=== PATIENT | male | born 1955 | race Caucasian/White ===

== ENCOUNTER 2017-02-12 23:03 | Emergency (ER) | payer OTHER ==
[2017-02-12 23:29] VITALS: BP 135/84; PULSE 90; RESP 16; TEMP 97.3; O2SAT 98
[2017-02-12 23:40] VITALS: BMI 50.8
[2017-02-12] MEDS ORDERED: (Novolog) Insulin Aspart, Recombinant 100 u/ml 10 ml vial SC STA (23:40)
--- NOTE | 2017-02-12 23:44 | C.PDOC ---
History Of Present Illness 61 yo morbidly obese M, reports sugar usually 180 today up to 550. He took 60 u novalog over several hours with decrease to ~450 the checked his insulin and it was outdated by 6 mths Now very anxious about the insulin. Denies CP, SOB, Fever, Vomiting, or non compliance Time Seen by Provider: 02/12/17 23:29 History Per: Patient History/Exam Limitations: no limitations Current Symptoms Are (Timing): Still Present Past Medical History Vital Signs: Last Vital Signs Temp 97.3 F L 02/12/17 23:28 Pulse 90 02/12/17 23:28 Resp 16 02/12/17 23:28 BP 135/84 02/12/17 23:28 Pulse Ox 98 02/12/17 23:46 - Medical History PMH: Arthritis, CAD, CHF, HTN, Hypercholesterolemia Surgical History: Coronary Stent - [facility] Procedures ASSISTANCE WITH RESPIRATORY VENTILATION, <24 HRS, CPAP (07/07/15) FLUOROSCOPY OF LEFT HEART USING LOW OSMOLAR CONTRAST (09/20/16) FLUOROSCOPY OF MULT COR ART USING L OSM CONTRAST (09/20/16) MEASURE OF CARDIAC SAMPL & PRESSURE, L HEART, PERC APPROACH (09/20/16) Family History: States: Unknown Family Hx - Social History Hx Tobacco Use: No Hx Alcohol Use: No Hx Substance Use: No Review Of Systems Except As Marked, All Systems Reviewed And Found Negative. Physical Exam - Physical Exam Appears: Well, No Acute Distress Skin: Normal Color, Warm Cardiovascular: Rhythm Regular Respiratory: No Rales, No Rhonchi Gastrointestinal/Abdominal: No Tenderness Neurological/Psych: Oriented x3, Normal Speech, Normal Cognition ED Course And Treatment O2 Sat by Pulse Oximetry: 98 Progress Note: accucheck 450 Medical Decision Making Medical Decision Making: Pt does not want blood work or furhter evaluation Requests insulin (novolog 25) and Rx for new bottle of novolog He understands the risk of no work up Plan sq insulin Rx for home Disposition Counseled Patient/Family Regarding: Diagnosis, Need For Followup - Disposition Disposition: HOME/ ROUTINE Disposition Time: 00:10 Condition: GOOD Prescriptions: Insulin Glulisine [Apidra] 16 unit SQ TID #1 ml Instructions: Diabetic Hyperglycemia (ED) - Clinical Impression Clinical Impression: Uncontrolled diabetes mellitus
[2017-02-12] MEDS ORDERED: (Novolog) Insulin Aspart, Recombinant 100 u/ml 10 ml vial ONE (23:48)
== END 2017-02-13 00:15 | disposition home or self-care (01) ==
LOC: C.ER 23:03
DX: E11.65 Type 2 diabetes mellitus with hyperglycemia (principal); Z79.4 Long term (current) use of insulin

== ENCOUNTER 2018-07-17 22:41 | Inpatient (IN) | payer OTHER ==
[2018-07-17 22:41] VITALS: BMI 50.8
[2018-07-18] MEDS ORDERED: Aspirin 325 mg EC Tablets PO STA (00:03)
[2018-07-18 00:50] LABS: BASO # 0.1 K/uL (0.0-0.2); EOS # 0.1 K/uL (0.0-0.7); EOS % 0.7 % (0.0-4.0); HEMOGLOBIN 13.3 g/dL (12.0-18.0); LYMPH # 2.3 K/uL (1.0-4.3); LYMPH % 15.1 % (20.0-40.0); MEAN CELL VOLUME 80.7 fL (80.0-94.0); MEAN CORPUSCULAR HEMOGLOBIN 26.4 pg (27.0-31.0); MEAN CORPUSCULAR HGB CONC 32.8 g/dL (33.0-37.0); MEAN PLATELET VOLUME 10.1 fL (7.2-11.7); MONO # 1.3 K/uL (0.0-0.8); MONO % 8.5 % (0.0-10.0); NEUT # 11.2 K/uL (1.8-7.0); NEUT % 74.7 % (50.0-75.0); NRBC % 0.1 % (0.0-2.0); RBC 5.02 Mil/uL (4.40-5.90); RED CELL DISTRIBUTION WIDTH 17.9 % (11.5-14.5); WHITE BLOOD COUNT 14.9 K/uL (4.8-10.8)
[2018-07-18] MEDS ORDERED: Aspirin 325 mg EC Tablets PO ONE (00:53)
--- NOTE | 2018-07-18 01:08 | C.PDOC ---
History Of Present Illness 63 year old male presents to the ED for evaluation of vague chest discomfort. Patient recently underwent admission on 05/18 for the same complaint and had a normal workup. Patient was evaluated by Dr. Mckeon (paper deliverer) and under went cardiac echo which was significant for LVH and diastolic dysfunction. Patient claims good medicine compliance. He denies fever, chills, shortness of breath, nausea, vomiting, extremity numbness/weakness. Time Seen by Provider: 07/17/18 23:56 Chief Complaint (Nursing): Chest Pain History Per: Patient History/Exam Limitations: no limitations Onset/Duration Of Symptoms: Days Current Symptoms Are (Timing): Still Present Additional History Per: Patient Past Medical History Reviewed: Historical Data, Nursing Documentation, Vital Signs Vital Signs: Last Vital Signs Temp 97.7 F 07/17/18 22:56 Pulse 86 07/17/18 22:56 Resp 22 07/17/18 22:56 BP 101/55 L 07/17/18 22:56 Pulse Ox - Medical History PMH: Arthritis, CAD, CHF, COPD, HTN, Hypercholesterolemia Denies: Asthma, Atrial Fibrillation, Cardia Arrhythmia, Mitral Valve Prolapse, Peripheral Edema, Chronic Kidney Disease Surgical History: Coronary Stent Denies: Pacemaker - [facility] Procedures ASSISTANCE WITH RESPIRATORY VENTILATION, <24 HRS, CPAP (07/07/15) FLUOROSCOPY OF LEFT HEART USING LOW OSMOLAR CONTRAST (09/20/16) FLUOROSCOPY OF MULT COR ART USING L OSM CONTRAST (09/20/16) MEASURE OF CARDIAC SAMPL & PRESSURE, L HEART, PERC APPROACH (09/20/16) Family History: States: Unknown Family Hx - Social History Hx Tobacco Use: No Hx Alcohol Use: No Hx Substance Use: No - Immunization History Hx Tetanus Toxoid Vaccination: No Hx Influenza Vaccination: No Hx Pneumococcal Vaccination: No Review Of Systems Constitutional: Negative for: Fever, Chills Cardiovascular: Positive for: Other (chest discomfort ) Gastrointestinal: Negative for: Nausea, Vomiting Neurological: Negative for: Weakness, Numbness Physical Exam - Physical Exam Appears: Non-toxic, No Acute Distress Skin: Normal Color, Warm, Dry Head: Atraumatic, Normacephalic, Other (plethoric face) Eye(s): bilateral: Normal Inspection Oral Mucosa: Moist Neck: Supple, Other (supraclavicular fat pads ) Chest: Symmetrical, No Deformity, No Tenderness Cardiovascular: Rhythm Regular, No Murmur Respiratory: Normal Breath Sounds, No Rales, No Rhonchi, No Wheezing Gastrointestinal/Abdominal: Soft, No Tenderness, No Guarding, No Rebound, Other (central obesity ) Back: Other (buffalo hump ) Extremity: Normal ROM, Capillary Refill (less than 2 seconds ), Other (thin extremities, no edema ) Neurological/Psych: Oriented x3, Normal Speech, Normal Cognition ED Course And Treatment - Laboratory Results Result Diagrams: 07/18/18 00:46 07/18/18 00:46 ECG: Interpreted By Me ECG Rhythm: Sinus Rhythm ECG Interpretation: Normal, No Acute Changes, No Changes From Prior Rate From EC O2 Sat by Pulse Oximetry: 95 (on RA) Pulse Ox Interpretation: Normal - Radiology CXR: Interpreted by Me CXR Interpretation: Yes: No Acute Disease, Other (unchanged from prior, same widened mediastinum which was imaged 05/18 w CTA, no thoracic aortic aneurysm.) Progress Note: Bloodwork, urinalysis, CXR, EKG ordered and reviewed. Aspirin PO and Lovenox SC administered. Reevaluation Time: 02:00 Reassessment Condition: Improved (remains asymptomatic now.) - Physician Consult Information Outcome Of Conversation: 0000, 0200: d/w Dr. Lange, ok to Tele Adm. Consult for Dr. Mckeon entered. 0300: d/w Dr. Sarmiento @ pt's request, who defers adm to Dr. Lange Medical Decision Making Medical Decision Making: CP/NSTEMI trop 1.21 CP free with normal EKG in ED high risk considering DM, morbid obesity lovenox SQ Consult Dr. Mckeon, has consulted on this pt prior Was pending opt stress test, unclear if this was performed chronic leukocytosis, not L-shifted, prob related to chronic steroids for COPD Central obesity/plethoric consider Bernadette Syndrome due to exogenous steroid use Consider ACTH/24 urine cortisol Disposition Doctor Will See Patient In The: Office Counseled Patient/Family Regarding: Studies Performed, Diagnosis - Disposition Disposition: HOSPITALIZED Disposition Time: 01:07 Condition: GOOD - Clinical Impression Clinical Impression: Chest pain, NSTEMI (non-ST elevated myocardial infarction) - Scribe Statement The provider has reviewed the documentation as recorded by the Scribe (Peyton Walter) Provider Attestation: All medical record entries made by the Scribe were at my direction and personall y dictated by me. I have reviewed the chart and agree that the record accurately reflects my personal performance of the history, physical exam, medical decision making, and the department course for this patient. I have also personally directed, reviewed, and agree with the discharge instructions and disposition.
[2018-07-18 01:20] LABS: ALB/GLOB RATIO 1.2 (1.0-2.1); ALBUMIN 3.7 g/dL (3.5-5.0); ALT/SGPT 59 U/L (21-72); AST/SGOT 64 U/L (17-59); BLOOD UREA NITROGEN 32 mg/dL (9-20); CALCIUM 8.9 mg/dl (8.6-10.4); GFR NON-AFRICAN AMERICAN > 60
[2018-07-18 01:54] LABS: B-TYPE NATRIURETIC PEPTIDE 169 pg/mL (0-900)
[2018-07-18] MEDS ORDERED: Enoxaparin 40 mg Syringe SC STA (01:57)
[2018-07-18] MEDS ORDERED: Enoxaparin 40 mg Syringe ONE (02:15)
[2018-07-18] MEDS ORDERED: Enoxaparin 60 mg Syringe ONE (02:16)
[2018-07-18] MEDS ORDERED: Morphine 4 MG/ML VIAL IV PRN (04:21)
--- NOTE | 2018-07-18 07:44 | RAD ---
Chest x-ray single frontal view HISTORY: Shortness of breath. COMPARISON: 05/12/2018 FINDINGS: Widened and prominent mediastinum. Clinical correlation. Enlarged ectatic aorta. Cardiomegaly. Mild venous congestion. Patchy increased markings at the left lung base. Degenerative changes in the spine and shoulders. Impression: Widened and prominent mediastinum. Clinical correlation. Enlarged ectatic aorta. Cardiomegaly. Mild venous congestion. Patchy increased markings at the left lung base.
--- NOTE | 2018-07-18 09:17 | CP.PCM.PN ---
Subjective - Date & Time of Evaluation Date of Evaluation: 07/18/18 Time of Evaluation: 09:14 - Subjective Subjective: House doctor responding to page Patient is having an NSTEMI as per EMR Came to see patient: sitting up in bed, combatitive with staff, refusing treatment believes that his white blood cell is elevated from infection, and it was explai cassie that the WBC elevation can be in response to the NSTEMI he is having; patient continued to become agitated patient states he had one stent prior offered 2mg IV morphine for pain control; patient refused EKG from 8:17AM shows NSR with no ST elevations, or T wave inversions/peaks Vitals: HR 75, BP 113/70, O2 98% on RA, RR 22 General: patient is agitated; morbidly obese Head: NCAT Chest: no sternotomy scar, Lungs: CTA b/lo heart: RRR no murmurs rubs or gallops abdomen: obese, soft non tender extrem: 1+ pitting edema lower extremities +2 pulses Ordered stat EKG Morphine 2mg; patient refused patient is anticoagulated with therapeutic lovenox and was loaded with plavix will repeat EKG; ICU doctor called Dwight Fuentes PGy3 Objective - Vital Signs/Intake and Output Vital Signs (last 24 hours): Temp Pulse Resp BP Pulse Ox 98 F 67 20 138/84 97 07/18/18 07:00 07/18/18 07:00 07/18/18 07:00 07/18/18 07:00 07/18/18 07:00 Intake and Output: 07/18/18 07/18/18 06:59 18:59 Intake Total 120 Balance 120 - Medications Medications: Current Medications Clopidogrel Bisulfate (Plavix) 75 mg PO DAILY [facility] Enoxaparin Sodium (Lovenox) 120 mg SC Q12 [facility] Influenza Virus Vaccine (Fluzone Quad [id number]) 60 mcg IM .ONCE ONE Stop: 07/20/18 10:01 Morphine Sulfate (Morphine) 2 mg IVP STAT STA Stop: 07/18/18 09:07 Ondansetron HCl (Zofran Inj) 4 mg IVP ONCE ONE Stop: 07/18/18 09:10 Ondansetron HCl (Zofran Odt) 4 mg PO Q6 PRN PRN Reason: Nausea/Vomiting Tramadol HCl (Ultram) 50 mg PO TID PRN PRN Reason: Pain, moderate (4-7) Last Admin: 07/18/18 04:51 Dose: 50 mg - Labs Labs: 07/18/18 00:46 07/18/18 00:46
[2018-07-18 10:13] LABS: CK-MB 8.14 ng/mL (0.0-3.38); TROPONIN I 1.48 ng/mL (0.00-0.120)
[2018-07-18] MEDS: Enoxaparin 120 mg Syringe SC SCH ×2 (10:21→22:03)
--- NOTE | 2018-07-18 12:28 | CP.PCM.CON ---
History of Present Illness - History of Present Illness History of Present Illness: I was asked to see patient by Dr Nolnad. Patient was seen 07/18/18 1100 Patient is a 63 year old male with HTN CAD s/p PCI, DM who presents with chest pain. Symptoms began 2 dasy ago, left sided chest pressure with radiation. There was associated dyspnea. He was admitted for further management. He ruled in for myocardial infarction. Review of Systems - Constitutional Constitutional: absent: As Per HPI, Anorexia, Chills, Daytime Sleepiness, Excessive Sweating, Fatigue, Fever, Frequent Falls, Headache, Increased Appetite, Lethargy, Malaise, Night Sweats, Snoring, Sleep Apnea, Weight Gain, Weight Loss, Weakness, Other - EENT Eyes: absent: As Per HPI, Blind Spots, Blurred Vision, Change in Vision, Decreased Night Vision, Diplopia, Discharge, Dry Eye, Exophthalmos, Floaters, Irritation, Itchy Eyes, Loss of Peripheral Vision, Pain, Photophobia, Requires Corrective Lenses, Sees Flashes, Spots in Vision, Tunnel Vision, Other Visual Disturbances, Loss of Vision, Other Ears: absent: As Per HPI, Decreased Hearing, Ear Discharge, Ear Pain, Tinnitus, Abnormal Hearing, Disequilibrium, Dizziness, Other Nose/Mouth/Throat: absent: As Per HPI, Epistaxis, Nasal Congestion, Nasal Discharge, Nasal Obstruction, Nasal Trauma, Nose Pain, Post Nasal Drip, Sinus Pain, Sinus Pressure, Bleeding Gums, Change in Voice, Dental Pain, Dry Mouth, Dysphagia, Halitosis, Hoarsness, Lip Swelling, Mouth Lesions, Mouth Pain, Odynophagia, Sore Throat, Throat Swelling, Tongue Swelling, Facial Pain, Neck Pain, Neck Mass, Other - Cardiovascular Cardiovascular: Chest Pain, Chest Pain at Rest, Dyspnea - Respiratory Respiratory: Dyspnea - Gastrointestinal Gastrointestinal: absent: As Per HPI, Abdominal Pain, Belching, Bloating, Change in Bowel Habits, Change in Stool Character, Coffee Ground Emesis, Constipation, Cramping, Diarrhea, Dyspepsia, Dysphagia, Early Satiety, Excessive Flatus, Fecal Incontinence, Heartburn, Hematemesis, Hematochezia, Loose Stools, Melena, Nause a, Odynophagia, Temesmus, Vomiting, Other - Genitourinary Genitourinary: absent: As Per HPI, Change in Urinary Stream, Difficulty Urinating, Dysuria, Flank Pain, Hematuria, Pyuria, Nocturia, Urinary Incontinence, Urinary Frequency, Urinary Hesitance, Urinary Urgency, Voiding Freq/Small Amts, Freq UTI, Hx Renal/Bladder Calculi, Hx /Renal Surgery, Bladder Distension, Other - Musculoskeletal Musculoskeletal: absent: As Per HPI, Abnormal Gait, Arthralgias, Atrophy, Back Pain, Deformity, Joint Swelling, Limited Range of Motion, Loss of Height, Muscle Cramps, Muscle Weakness, Myalgias, Neck Pain, Numbness, Radiating Pain into Limb, Stiffness, Tingling, Other - Integumentary Integumentary: Photosensitivity, Pruritus, Rash - Neurological Neurological: absent: As Per HPI, Abnormal Gait, Abnormal Hearing, Abnormal Movements, Abnormal Speech, Behavioral Changes, Burning Sensations, Confusion, Convulsions, Disequilibrium, Dizziness, Numbness, Focal Weakness, Frequent Falls, Headaches, Lack of Coordination, Loss of Vision, Memory Loss, Par esthesias, Radicular Pain, Restless Legs, Sensory Deficit, Syncope, Tingling, Tremor, Vertigo, Weakness, Other Visual Disturbances, Other - Psychiatric Psychiatric: absent: As Per HPI, Abnormal Sleep Pattern, Anhedonia, Anxiety, Auditory Hallucinations, Behavioral Changes, Change in Appetite, Change in Libido, Confusion, Depression, Difficulty Concentrating, Hallucinations, Homicidal Ideation, Hopelessness, Irritability, Memory Loss, Mood Swings, Panic Attacks, Paranoia, Suicidal Ideation, Visual Hallucinations, Tactile Hallucinations, Other - Endocrine Endocrine: absent: As Per HPI, Change in Body Appearance, Change in Libido, Cold Intolorance, Deepening of Voice, Excessive Sweating, Fatigue, Flushing, Heat Intolorance, Increase in Ring/Shoe/Hat Size, Palpitations, Polydipsia, Polyphagia, Polyuria, Other - Hematologic/Lymphatic Hematologic: absent: As Per HPI, Easy Bleeding, Easy Bruising, Lymphadenopathy, Other Past Patient History - Infectious Disease Hx of Infectious Diseases: None - Tetanus Immunizations Tetanus Immunization: Up to Date - Past Medical History & Family History Past Medical History?: Yes - Past Social History Smoking Status: Former Smoker - CARDIAC Hx Atrial Fibrillation: No Hx Cardia Arrhythmia: No Hx Congestive Heart Failure: Yes Hx Hypercholesterolemia: Yes Hx Hypertension: Yes Hx Mitral Valve Prolapse: No Hx Pacemaker: No Hx Peripheral Edema: No - PULMONARY Hx Asthma: No Hx Chronic Obstructive Pulmonary Disease (COPD): Yes - NEUROLOGICAL Hx Neurological Disorder: No - HEENT Other/Comment: Catract Extraction 07/2017 - RENAL Hx Chronic Kidney Disease: No - ENDOCRINE/METABOLIC Hx Endocrine Disorders: Yes Hx Diabetes Mellitus Type 1: Yes - HEMATOLOGICAL/ONCOLOGICAL Hx Blood Transfusions: No Hx Bruising: Yes - INTEGUMENTARY Hx Dermatological Problems: Yes Hx Psoriasis: Yes - MUSCULOSKELETAL/RHEUMATOLOGICAL Hx Arthritis: Yes - GASTROINTESTINAL Hx Gastrointestinal Disorders: No - GENITOURINARY/GYNECOLOGICAL Hx Prostate Problems: Yes - PSYCHIATRIC Hx Substance Use: No - SURGICAL HISTORY Hx Coronary Stent: Yes - ANESTHESIA Hx Anesthesia: Yes Hx Anesthesia Reactions: No Hx Malignant Hyperthermia: No Has any member of the family had a problem w/ anesthesia?: No Meds Allergies/Adverse Reactions: Allergies Allergy/AdvReac Type Severity Reaction Status Date / Time No Known Allergies Allergy Verified 07/17/18 22:51 - Medications Medications: Current Medications Clopidogrel Bisulfate (Plavix) 75 mg PO DAILY [facility] Enoxaparin Sodium (Lovenox) 120 mg SC Q12 [facility] Last Admin: 07/18/18 10:21 Dose: 120 mg Influenza Virus Vaccine (Fluzone Quad [id number]) 60 mcg IM .ONCE ONE Stop: 07/20/18 10:01 Ketorolac Tromethamine (Toradol) 30 mg IVP Q6 PRN PRN Reason: Pain, SEVERE (8-10) Last Admin: 07/18/18 11:51 Dose: 30 mg Nitroglycerin (Nitrostat Sl Tab) 0.4 mg SL Q5M PRN PRN Reason: chest pain Ondansetron HCl (Zofran Odt) 4 mg PO Q6 PRN PRN Reason: Nausea/Vomiting Tramadol HCl (Ultram) 50 mg PO TID PRN PRN Reason: Pain, moderate (4-7) Last Admin: 07/18/18 04:51 Dose: 50 mg Physical Exam - Constitutional Appears: Non-toxic - Head Exam Head Exam: NORMAL INSPECTION - Eye Exam Eye Exam: Normal appearance - ENT Exam ENT Exam: Mucous Membranes Moist - Neck Exam Neck exam: Positive for: Full Rom - Respiratory Exam Respiratory Exam: Decreased Breath Sounds, NORMAL BREATHING PATTERN - Cardiovascular Exam Cardiovascular Exam: REGULAR RHYTHM - GI/Abdominal Exam GI & Abdominal Exam: Normal Bowel Sounds - Rectal Exam Rectal Exam: Deferred - Extremities Exam Extremities exam: Positive for: normal inspection, pedal edema - Back Exam Back exam: NORMAL INSPECTION - Neurological Exam Neurological exam: Alert, CN II-XII Intact, Oriented x3, Reflexes Normal - Psychiatric Exam Psychiatric exam: Normal Affect, Normal Mood - Skin Skin Exam: Dry, Intact, Normal Color, Rash, Warm Results - Vital Signs Recent Vital Signs: Last Vital Signs Temp 98 F 07/18/18 07:00 Pulse 105 H 07/18/18 10:19 Resp 20 07/18/18 07:00 BP 133/87 07/18/18 10:19 Pulse Ox 97 07/18/18 07:00 - Labs Result Diagrams: 07/18/18 00:46 07/18/18 00:46 Labs: Laboratory Results - last 24 hr 07/18/18 07/18/18 07/18/18 00:46 00:46 09:11 WBC 14.9 H RBC 5.02 Hgb 13.3 Hct 40.5 MCV 80.7 MCH 26.4 L MCHC 32.8 L RDW 17.9 H Plt Count 272 MPV 10.1 Neut % (Auto) 74.7 Lymph % (Auto) 15.1 L [place] % (Auto) 8.5 Eos % (Auto) 0.7 Baso % (Auto) 1.0 Neut # (Auto) 11.2 H Lymph # (Auto) 2.3 [place] # (Auto) 1.3 H Eos # (Auto) 0.1 Baso # (Auto) 0.1 Sodium 133 Potassium 3.8 Chloride 98 Carbon Dioxide 23 Anion Gap 16 BUN 32 H Creatinine 1.1 Est GFR ( Amer) > 60 Est GFR (Non-Af Amer) > 60 POC Glucose (mg/dL) Random Glucose 159 H Calcium 8.9 Total Bilirubin 0.5 AST 64 H D ALT 59 Alkaline Phosphatase 125 Total Creatine Kinase 95 CK-MB (Mass) 8.14 H Troponin I 1.2100 H* 1.4800 H* NT-Pro-B Natriuret Pep 169 Total Protein 6.8 Albumin 3.7 Globulin 3.0 Albumin/Globulin Ratio 1.2 07/18/18 11:22 WBC RBC Hgb Hct MCV MCH MCHC RDW Plt Count MPV Neut % (Auto) Lymph % (Auto) [place] % (Auto) Eos % (Auto) Baso % (Auto) Neut # (Auto) Lymph # (Auto) [place] # (Auto) Eos # (Auto) Baso # (Auto) Sodium Potassium Chloride Carbon Dioxide Anion Gap BUN Creatinine Est GFR ( Amer) Est GFR (Non-Af Amer) POC Glucose (mg/dL) 193 H Random Glucose Calcium Total Bilirubin AST ALT Alkaline Phosphatase Total Creatine Kinase CK-MB (Mass) Troponin I NT-Pro-B Natriuret Pep Total Protein Albumin Globulin Albumin/Globulin Ratio - EKG Data EKG Interpreted by: Myself EKG shows normal: Sinus rhythm Assessment & Plan (1) NSTEMI (non-ST elevated myocardial infarction) Assessment and Plan: will give lovenox. asa/Plavix given will check echocardiogram. agressive medical therapy. plan for cardiac cath, possible PCI thursday. Status: Acute (2) Uncontrolled diabetes mellitus Assessment and Plan: will need improved blood pressure control Status: Acute (3) CAD (coronary artery disease) Assessment and Plan: ASA/Plavix given Status: Chronic Priority: Medium (4) HTN (hypertension) Assessment and Plan: beta dustin therapy Status: Chronic Priority: Medium
[2018-07-18] MEDS ORDERED: Clotrimazole/Betamethasone Cream(15 gm) EXT PRN (13:28)
[2018-07-18] MEDS ORDERED: Desoximetasone 0.25% Cream(15 gm) TOP PRN (13:28)
[2018-07-18] MEDS ORDERED: Bacitracin Ointment 30 GM TUBE TOP PRN (13:28)
[2018-07-18] MEDS ORDERED: Clobetasol 0.05% Oint(15 gm) TOP PRN (13:28)
[2018-07-18] MEDS ORDERED: Glucagon Recombinant 1 mg Inj IM PRN (13:52)
[2018-07-18] MEDS ORDERED: Dextrose 50% SYRINGE Inj (50 ml) IV PRN (13:52)
[2018-07-18 18:09] LABS: CK-MB 5.88 ng/mL (0.0-3.38); TROPONIN I 0.935 ng/mL (0.00-0.120)
[2018-07-18] MEDS: (Novolog) Insulin Aspart, Recombinant 100 u/ml 10 ml vial SC SCH ×2 (18:21→21:59)
[2018-07-18] MEDS: Docusate-Senna 50 mg-8.6 mg Tab PO SCH (18:36)
[2018-07-18] MEDS: Insulin Detemir 100 units/ml Vial (Levemir) SC SCH (22:02)
[2018-07-19] MEDS ORDERED: Docusate-Senna 50 mg-8.6 mg Tab PO ONE (07:30)
[2018-07-19] MEDS: (Novolog) Insulin Aspart, Recombinant 100 u/ml 10 ml vial SC SCH ×4 (08:18→21:45)
[2018-07-19] MEDS ORDERED: CHLORDIAZEPOXIDE 25 MG PO SCH (10:00)
[2018-07-19] MEDS ORDERED: [UNRECOGNIZED DRUG - OTHER] PO SCH (10:00)
[2018-07-19] MEDS: Docusate-Senna 50 mg-8.6 mg Tab PO SCH (10:27)
[2018-07-19] MEDS: Pantoprazole 40 mg EC Tab PO SCH (10:27)
[2018-07-19] MEDS: Enoxaparin 120 mg Syringe SC SCH ×2 (10:31→22:12)
[2018-07-19] MEDS: Tobramycin/Dexamethasone OPHT OINT OU PRN ×2 (11:41→23:00)
--- NOTE | 2018-07-19 12:24 | CARD ---
APPROVED REPORT Date of service: 07/18/2018 EKG Measurement Heart [id number] <Conclusion> Sinus rhythm with premature atrial complexes Moderate voltage criteria for LVH, may be normal variant Borderline ECG
--- NOTE | 2018-07-19 12:24 | CARD ---
APPROVED REPORT Date of service: 07/18/2018 EKG Measurement Heart [id number] <Conclusion> Normal sinus rhythm Moderate voltage criteria for LVH, may be normal variant Borderline ECG
--- NOTE | 2018-07-19 12:36 | CP.PCM.PN ---
Subjective - Date & Time of Evaluation Date of Evaluation: 07/19/18 Time of Evaluation: 12:34 - Subjective Subjective: PGY3 Note for Dr. Noland This patient was seen and examined by myself yesterday for NSTEMI; and today with Dr. Noland. The patient became extremely combatitive with Dr. Noland in [facility] and has been verbally abuse to all house staff, nursing staff that have been in contact with him. The patient is adamant that he has an infection even though he has no signs/source of infection. He is convinced his elevated WBC is an infection. The rivet spinner yesterday spent 45 minutes speaking with him, after I had spoke to him for 30 minutes yesterday, and begrudgingly ordered urine cultures and blood cultures even though they were not indicated. The patient has been afebrile, non toxic appearing for his entire hospital stay. The patient is demanding antibiotics for an infection that simply does not exist at this point. The patient denies any complaints today and remains combative and agitated with labile reactions. Objective - Vital Signs/Intake and Output Vital Signs (last 24 hours): Temp Pulse Resp BP Pulse Ox 98.5 F 99 H 20 139/88 96 07/19/18 07:40 07/19/18 10:23 07/19/18 07:40 07/19/18 10:37 07/19/18 07:40 - Medications Medications: Current Medications Allopurinol (Zyloprim) 100 mg PO DAILY [facility] Last Admin: 07/19/18 10:24 Dose: 100 mg Aspirin (Ecotrin) 81 mg PO DAILY [facility] Last Admin: 07/19/18 10:27 Dose: 81 mg Atenolol (Tenormin) 50 mg PO DAILY [facility] Last Admin: 07/19/18 10:27 Dose: 50 mg Betamethasone/Clotrimazole (Lotrisone) 15 gm EXT BID PRN PRN Reason: Itching / Pruritus Last Admin: 07/18/18 18:22 Dose: 1 applic Bumetanide (Bumex) 1 mg PO DAILY [facility] Last Admin: 07/19/18 10:28 Dose: 1 mg Buspirone HCl (Buspar) 5 mg PO Q12 [facility] Last Admin: 07/19/18 10:29 Dose: 5 mg Clopidogrel Bisulfate (Plavix) 75 mg PO DAILY [facility] Last Admin: 07/19/18 10:24 Dose: 75 mg Desoximetasone (Topicort 0.25%) 1 ea TOP BID PRN PRN Reason: Psoriasis Last Admin: 07/18/18 18:21 Dose: 1 applic Dextrose (Dextrose 50% Inj) 0 ml IV STAT PRN; Protocol PRN Reason: Hypoglycemia Protocol Dextrose (Glutose 15) 0 gm PO ONCE PRN; Protocol PRN Reason: Hypoglycemia Protocol Enoxaparin Sodium (Lovenox) 120 mg SC Q12 [facility] Last Admin: 07/19/18 10:31 Dose: 120 mg Furosemide (Lasix) 80 mg PO Q12 [facility] Last Admin: 07/19/18 10:37 Dose: 80 mg Glucagon (Glucagen Diagnostic Kit) 0 mg IM STAT PRN; Protocol PRN Reason: Hypoglycemia Protocol Dextrose (Dextrose 5% In Water 1000 Ml) 1,000 mls @ 0 mls/hr IV .Q0M PRN; Protocol PRN Reason: Hypoglycemia Protocol Influenza Virus Vaccine (Fluzone Quad [id number]) 60 mcg IM .ONCE ONE Stop: 07/20/18 10:01 Insulin Aspart (Novolog) 0 unit SC [facility]; Protocol Last Admin: 07/19/18 08:18 Dose: Not Given Insulin Detemir (Levemir) 40 unit SC [facility] Last Admin: 07/18/18 22:02 Dose: 40 units Ketorolac Tromethamine (Toradol) 30 mg IVP Q6 PRN PRN Reason: Pain, SEVERE (8-10) Last Admin: 07/19/18 10:32 Dose: 30 mg Lisinopril (Zestril) 20 mg PO DAILY [facility] Last Admin: 07/19/18 10:24 Dose: 20 mg Montelukast Sodium (Singulair) 10 mg PO DAILY [facility] Last Admin: 07/19/18 11:00 Dose: 10 mg Nitroglycerin (Nitrostat Sl Tab) 0.4 mg SL Q5M PRN PRN Reason: chest pain Ondansetron HCl (Zofran Odt) 4 mg PO Q6 PRN PRN Reason: Nausea/Vomiting Pantoprazole Sodium (Protonix Ec Tab) 40 mg PO DAILY [facility] Last Admin: 07/19/18 10:27 Dose: 40 mg Rosuvastatin Calcium (Crestor) 20 mg PO [facility] Last Admin: 07/18/18 22:02 Dose: 20 mg Senna/Docusate Sodium (Senokot S 50 Mg-8.6 Mg) 1 tab PO DAILY [facility] Last Admin: 07/19/18 10:27 Dose: 1 tab Tamsulosin HCl (Flomax) 0.4 mg PO DAILY [facility] Last Admin: 07/19/18 10:26 Dose: 0.4 mg Tobramycin/Dexamethasone (Tobradex 0.3%-0.1% Opht Oint) 0 appl OU Q6H PRN PRN Reason: eyes Last Admin: 07/19/18 11:41 Dose: 1 applic Tramadol HCl (Ultram) 50 mg PO TID PRN PRN Reason: Pain, moderate (4-7) Last Admin: 07/19/18 11:52 Dose: 50 mg - Labs Labs: 07/18/18 00:46 07/18/18 00:46 - Constitutional Appears: Non-toxic (morbildy obese) - Head Exam Head Exam: ATRAUMATIC - Eye Exam Eye Exam: EOMI - ENT Exam ENT Exam: Mucous Membranes Moist - Neck Exam Neck Exam: Full ROM - Respiratory Exam Respiratory Exam: Clear to Ausculation Bilateral - Cardiovascular Exam Cardiovascular Exam: REGULAR RHYTHM, +S1, +S2 - GI/Abdominal Exam GI & Abdominal Exam: Soft, Normal Bowel Sounds (mrobdly obese abdomen ) - Extremities Exam Extremities Exam: absent: Calf Tenderness - Back Exam Back Exam: absent: CVA tenderness (L), CVA tenderness (R) - Neurological Exam Neurological Exam: Alert, Awake, CN II-XII Intact, Oriented x3 - Psychiatric Exam Psychiatric exam: Agitated - Skin Skin Exam: Warm Assessment and Plan - Assessment and Plan (Free Text) Assessment: 63yo M admited for NSTEMI NSTEMI -Lovenox 120mg SC Q12H -Plavix 75mg PO daily; already received loading dose -on CATRACHITA/B Asaf/Aspirin/Statin (received 325 and 81 now daily) -Dr. Mckeon; plan for PCI on thursday -telemtry monitoring -Troponins 1.2-->1.4-->.9 (downtrending) EKG with no evolution of STEMI -patient to have echocardiogram after PCI to asses LVEF Hx of Gout -c/w allopurinol Hx of previous MD w/ Stent -c/w with management as per Dr. Mckeon Hx of Psoriasis -c/w creams; patient not in acute exacerbation -to f/u with Dr. Sarmiento Hx of HTN -c/w meds above Proph -Therapeutic Lovenox 120 Q12h -GI prophylaxis not indicated -NPO after midnight for PCI tomorrow -patient prefers to speak Serbian, but fluent in swedish Case discussed and seen with Dr. Nuzhat Sarmiento PGY3
--- NOTE | 2018-07-19 17:04 | CP.PCM.PN ---
Subjective - Date & Time of Evaluation Date of Evaluation: 07/19/18 Time of Evaluation: 17:01 - Subjective Subjective: PGY3 Note Update Patient continues to be verbally abuse to staff members, yelling and demanding treatments that are not indicated paged to come see the patient with chest pain patient is agitated, sitting up in bed, screaming at staff that he has an infection and needs antibiotics patient does not want to believe that WBC can be elevated with MD, which is the more obvious source of his elevation of WBC patient demanding antibiotics, and toradol for his chest pain patient was offered morphine and sublingual nitroglycerin which are more indicated for cardiac chest pain patient refusing medicine at bedside Vitals: O2 96% on room air, RR 16, BP 99/72, Temp 98.6 General: extremely agitated, extremely hard to redirect Head: NCAT Chest: CTA b/l abdomen:obese, soft non tender extrem: +2 pitting edema up to knees b/l lower extrem Psych: agitated, non-redirectable patient is for [place] [facility] will recheck troponin and EKG troponin has been downtrending Dwight Fuentes PGY3 Objective - Vital Signs/Intake and Output Vital Signs (last 24 hours): Temp Pulse Resp BP Pulse Ox 98.5 F 99 H 20 139/88 96 07/19/18 07:40 07/19/18 10:23 07/19/18 07:40 07/19/18 10:37 07/19/18 07:40 - Medications Medications: Current Medications Allopurinol (Zyloprim) 100 mg PO DAILY [facility] Last Admin: 07/19/18 10:24 Dose: 100 mg Aspirin (Ecotrin) 81 mg PO DAILY [facility] Last Admin: 07/19/18 10:27 Dose: 81 mg Atenolol (Tenormin) 50 mg PO DAILY [facility] Last Admin: 07/19/18 10:27 Dose: 50 mg Betamethasone/Clotrimazole (Lotrisone) 15 gm EXT BID PRN PRN Reason: Itching / Pruritus Last Admin: 07/18/18 18:22 Dose: 1 applic Bumetanide (Bumex) 1 mg PO DAILY [facility] Last Admin: 07/19/18 10:28 Dose: 1 mg Buspirone HCl (Buspar) 5 mg PO Q12 [facility] Last Admin: 07/19/18 10:29 Dose: 5 mg Clopidogrel Bisulfate (Plavix) 75 mg PO DAILY [facility] Last Admin: 07/19/18 10:24 Dose: 75 mg Desoximetasone (Topicort 0.25%) 1 ea TOP BID PRN PRN Reason: Psoriasis Last Admin: 07/18/18 18:21 Dose: 1 applic Dextrose (Dextrose 50% Inj) 0 ml IV STAT PRN; Protocol PRN Reason: Hypoglycemia Protocol Dextrose (Glutose 15) 0 gm PO ONCE PRN; Protocol PRN Reason: Hypoglycemia Protocol Enoxaparin Sodium (Lovenox) 120 mg SC Q12 [facility] Last Admin: 07/19/18 10:31 Dose: 120 mg Furosemide (Lasix) 80 mg PO Q12 [facility] Last Admin: 07/19/18 10:37 Dose: 80 mg Glucagon (Glucagen Diagnostic Kit) 0 mg IM STAT PRN; Protocol PRN Reason: Hypoglycemia Protocol Dextrose (Dextrose 5% In Water 1000 Ml) 1,000 mls @ 0 mls/hr IV .Q0M PRN; Protocol PRN Reason: Hypoglycemia Protocol Influenza Virus Vaccine (Fluzone Quad [id number]) 60 mcg IM .ONCE ONE Stop: 07/20/18 10:01 Insulin Aspart (Novolog) 0 unit SC [facility]; Protocol Last Admin: 07/19/18 11:30 Dose: Not Given Insulin Detemir (Levemir) 40 unit SC [facility] Last Admin: 07/18/18 22:02 Dose: 40 units Ketorolac Tromethamine (Toradol) 30 mg IVP Q6 PRN PRN Reason: Pain, SEVERE (8-10) Last Admin: 07/19/18 10:32 Dose: 30 mg Lisinopril (Zestril) 20 mg PO DAILY [facility] Last Admin: 07/19/18 10:24 Dose: 20 mg Metoprolol Tartrate (Lopressor) 25 mg PO 0800,1800 [facility] Montelukast Sodium (Singulair) 10 mg PO DAILY [facility] Last Admin: 07/19/18 11:00 Dose: 10 mg Nitroglycerin (Nitrostat Sl Tab) 0.4 mg SL Q5M PRN PRN Reason: chest pain Ondansetron HCl (Zofran Odt) 4 mg PO Q6 PRN PRN Reason: Nausea/Vomiting Pantoprazole Sodium (Protonix Ec Tab) 40 mg PO DAILY [facility] Last Admin: 07/19/18 10:27 Dose: 40 mg Rosuvastatin Calcium (Crestor) 20 mg PO HS [facility] Last Admin: 07/18/18 22:02 Dose: 20 mg Senna/Docusate Sodium (Senokot S 50 Mg-8.6 Mg) 1 tab PO DAILY [facility] Last Admin: 07/19/18 10:27 Dose: 1 tab Tamsulosin HCl (Flomax) 0.4 mg PO DAILY [facility] Last Admin: 07/19/18 10:26 Dose: 0.4 mg Tobramycin/Dexamethasone (Tobradex 0.3%-0.1% Opht Oint) 0 appl OU Q6H PRN PRN Reason: eyes Last Admin: 07/19/18 11:41 Dose: 1 applic Tramadol HCl (Ultram) 50 mg PO TID PRN PRN Reason: Pain, moderate (4-7) Last Admin: 07/19/18 11:52 Dose: 50 mg - Labs Labs: 07/18/18 00:46 07/18/18 00:46
--- NOTE | 2018-07-19 18:14 | CP.PCM.PN ---
Subjective - Date & Time of Evaluation Date of Evaluation: 07/19/18 Time of Evaluation: 17:40 - Subjective Subjective: patient had an episode of chest orellana. He has dyspnea at rest Objective - Vital Signs/Intake and Output Vital Signs (last 24 hours): Temp Pulse Resp BP Pulse Ox 97.5 F L 67 20 99/58 L 98 07/19/18 15:00 07/19/18 15:00 07/19/18 15:00 07/19/18 15:00 07/19/18 15:00 - Medications Medications: Current Medications Allopurinol (Zyloprim) 100 mg PO DAILY [facility] Last Admin: 07/19/18 10:24 Dose: 100 mg Aspirin (Ecotrin) 81 mg PO DAILY [facility] Last Admin: 07/19/18 10:27 Dose: 81 mg Atenolol (Tenormin) 50 mg PO DAILY [facility] Last Admin: 07/19/18 10:27 Dose: 50 mg Betamethasone/Clotrimazole (Lotrisone) 15 gm EXT BID PRN PRN Reason: Itching / Pruritus Last Admin: 07/18/18 18:22 Dose: 1 applic Bumetanide (Bumex) 1 mg PO DAILY [facility] Last Admin: 07/19/18 10:28 Dose: 1 mg Buspirone HCl (Buspar) 5 mg PO Q12 [facility] Last Admin: 07/19/18 10:29 Dose: 5 mg Clopidogrel Bisulfate (Plavix) 75 mg PO DAILY [facility] Last Admin: 07/19/18 10:24 Dose: 75 mg Desoximetasone (Topicort 0.25%) 1 ea TOP BID PRN PRN Reason: Psoriasis Last Admin: 07/18/18 18:21 Dose: 1 applic Dextrose (Dextrose 50% Inj) 0 ml IV STAT PRN; Protocol PRN Reason: Hypoglycemia Protocol Dextrose (Glutose 15) 0 gm PO ONCE PRN; Protocol PRN Reason: Hypoglycemia Protocol Enoxaparin Sodium (Lovenox) 120 mg SC Q12 [facility] Last Admin: 07/19/18 10:31 Dose: 120 mg Furosemide (Lasix) 80 mg PO Q12 [facility] Last Admin: 07/19/18 10:37 Dose: 80 mg Glucagon (Glucagen Diagnostic Kit) 0 mg IM STAT PRN; Protocol PRN Reason: Hypoglycemia Protocol Dextrose (Dextrose 5% In Water 1000 Ml) 1,000 mls @ 0 mls/hr IV .Q0M PRN; Protocol PRN Reason: Hypoglycemia Protocol Influenza Virus Vaccine (Fluzone Quad [id number]) 60 mcg IM .ONCE ONE Stop: 07/20/18 10:01 Insulin Aspart (Novolog) 0 unit SC [facility]; Protocol Last Admin: 07/19/18 11:30 Dose: Not Given Insulin Detemir (Levemir) 40 unit SC [facility] Last Admin: 07/18/18 22:02 Dose: 40 units Ketorolac Tromethamine (Toradol) 30 mg IVP Q6 PRN PRN Reason: Pain, SEVERE (8-10) Last Admin: 07/19/18 10:32 Dose: 30 mg Lisinopril (Zestril) 20 mg PO DAILY [facility] Last Admin: 07/19/18 10:24 Dose: 20 mg Metoprolol Tartrate (Lopressor) 25 mg PO 0800,1800 [facility] Montelukast Sodium (Singulair) 10 mg PO DAILY [facility] Last Admin: 07/19/18 11:00 Dose: 10 mg Nitroglycerin (Nitrostat Sl Tab) 0.4 mg SL Q5M PRN PRN Reason: chest pain Ondansetron HCl (Zofran Odt) 4 mg PO Q6 PRN PRN Reason: Nausea/Vomiting Pantoprazole Sodium (Protonix Ec Tab) 40 mg PO DAILY [facility] Last Admin: 07/19/18 10:27 Dose: 40 mg Rosuvastatin Calcium (Crestor) 20 mg PO [facility] Last Admin: 07/18/18 22:02 Dose: 20 mg Senna/Docusate Sodium (Senokot S 50 Mg-8.6 Mg) 1 tab PO DAILY [facility] Last Admin: 07/19/18 10:27 Dose: 1 tab Tamsulosin HCl (Flomax) 0.4 mg PO DAILY [facility] Last Admin: 07/19/18 10:26 Dose: 0.4 mg Tobramycin/Dexamethasone (Tobradex 0.3%-0.1% Opht Oint) 0 appl OU Q6H PRN PRN Reason: eyes Last Admin: 07/19/18 11:41 Dose: 1 applic Tramadol HCl (Ultram) 50 mg PO TID PRN PRN Reason: Pain, moderate (4-7) Last Admin: 07/19/18 11:52 Dose: 50 mg - Labs Labs: 07/18/18 00:46 07/18/18 00:46 - Constitutional Appears: Non-toxic - Head Exam Head Exam: NORMAL INSPECTION - Eye Exam Eye Exam: Normal appearance - ENT Exam ENT Exam: Mucous Membranes Moist - Neck Exam Neck Exam: Full ROM - Cardiovascular Exam Cardiovascular Exam: REGULAR RHYTHM - GI/Abdominal Exam GI & Abdominal Exam: Normal Bowel Sounds - Rectal Exam Rectal Exam: Deferred - Extremities Exam Extremities Exam: Normal Inspection. absent: Pedal Edema - Back Exam Back Exam: NORMAL INSPECTION - Neurological Exam Neurological Exam: Alert - Psychiatric Exam Psychiatric exam: Normal Affect - Skin Additional comments: psoriasis Assessment and Plan (1) NSTEMI (non-ST elevated myocardial infarction) Assessment & Plan: troponin trending down. will schedule cardiac cath for tomorrow. NPO after breakfast tomorrow. will transfer to [facility] for [facility] cath and possible intervention Status: Acute (2) Uncontrolled diabetes mellitus Assessment & Plan: risk factor for CAD. Status: Acute (3) CAD (coronary artery disease) Assessment & Plan: previous PCI and now with NSTEMI. for cardiac cath tomorrow. Status: Chronic (4) HTN (hypertension) Status: Chronic
[2018-07-19 19:06] LABS: CK-MB 2.63 ng/mL (0.0-3.38); TROPONIN I 0.572 ng/mL (0.00-0.120)
[2018-07-19] MEDS: Insulin Detemir 100 units/ml Vial (Levemir) SC SCH (22:13)
--- NOTE | 2018-07-19 23:14 | CARD ---
APPROVED REPORT Date of service: 07/17/2018 EKG Measurement Heart [id number] <Conclusion> Normal sinus rhythm Moderate voltage criteria for LVH, may be normal variant Borderline ECG
[2018-07-20 07:05] LABS: BASO # 0.1 K/uL (0.0-0.2); BASO % 0.6 % (0.0-2.0); EOS # 0.2 K/uL (0.0-0.7); EOS % 1.9 % (0.0-4.0); HEMOGLOBIN 12.4 g/dL (12.0-18.0); LYMPH # 2.6 K/uL (1.0-4.3); LYMPH % 23.4 % (20.0-40.0); MEAN CELL VOLUME 80.6 fL (80.0-94.0); MEAN CORPUSCULAR HEMOGLOBIN 26.7 pg (27.0-31.0); MEAN CORPUSCULAR HGB CONC 33.1 g/dL (33.0-37.0); MEAN PLATELET VOLUME 10.8 fL (7.2-11.7); MONO % 9.1 % (0.0-10.0); NEUT # 7.2 K/uL (1.8-7.0); RBC 4.63 Mil/uL (4.40-5.90); RED CELL DISTRIBUTION WIDTH 17.1 % (11.5-14.5); WHITE BLOOD COUNT 11.1 K/uL (4.8-10.8)
[2018-07-20 07:16] LABS: ALB/GLOB RATIO 1.1 (1.0-2.1); ALBUMIN 3.4 g/dL (3.5-5.0); ALT/SGPT 82 U/L (21-72); AST/SGOT 95 U/L (17-59); BLOOD UREA NITROGEN 30 mg/dL (9-20); CALCIUM 8.8 mg/dl (8.6-10.4); GFR NON-AFRICAN AMERICAN 56
[2018-07-20 07:18] LABS: INR 1.1; PROTHROMBIN TIME 11.7 SECONDS (9.7-12.2)
[2018-07-20] MEDS: (Novolog) Insulin Aspart, Recombinant 100 u/ml 10 ml vial SC SCH ×3 (07:46→22:37)
[2018-07-20] MEDS ORDERED: Influenza Vaccine 60 MCG/0.5 ML SYR (3 yr & up) IM ONE (10:00)
[2018-07-20] MEDS: Tobramycin/Dexamethasone OPHT OINT OU PRN (10:24)
[2018-07-20] MEDS: Docusate-Senna 50 mg-8.6 mg Tab PO SCH (10:27)
[2018-07-20] MEDS: Pantoprazole 40 mg EC Tab PO SCH (10:27)
[2018-07-20] MEDS: Enoxaparin 120 mg Syringe SC SCH ×2 (10:41→22:37)
--- NOTE | 2018-07-20 14:58 | CP.PCM.PN ---
Subjective - Date & Time of Evaluation Date of Evaluation: 07/20/18 Time of Evaluation: 10:20 - Subjective Subjective: Medicine progress note ( Dr. Noland's service) Patient was seen and examined at bedside. Patient denies any discomfort, however, he is very argumentative about his current condition; he believes his INR is not at its numerical goal, however, patient is not on anti-coagulation treatment. I believe patient is mistaken and confused from his medical research from various website. During the encounter, I went over patient's current medic al condition and goal of treatment. Patient states that he understands and that he is appreciates the explanation. Upon ROS, patient denies chest pain, palpitations, shortness of breath and dizziness. Objective - Vital Signs/Intake and Output Vital Signs (last 24 hours): Temp Pulse Resp BP Pulse Ox 98.3 F 60 20 97/64 L 96 07/20/18 07:00 07/20/18 08:15 07/20/18 07:00 07/20/18 07:00 07/20/18 07:00 Intake and Output: 07/20/18 07/20/18 06:59 18:59 Output Total 400 Balance -400 - Medications Medications: Current Medications Allopurinol (Zyloprim) 100 mg PO DAILY [facility] Last Admin: 07/20/18 10:27 Dose: 100 mg Aspirin (Ecotrin) 81 mg PO DAILY [facility] Last Admin: 07/20/18 10:28 Dose: 81 mg Atenolol (Tenormin) 50 mg PO DAILY [facility] Last Admin: 07/20/18 10:27 Dose: 50 mg Betamethasone/Clotrimazole (Lotrisone) 15 gm EXT BID PRN PRN Reason: Itching / Pruritus Last Admin: 07/18/18 18:22 Dose: 1 applic Bumetanide (Bumex) 1 mg PO DAILY [facility] Last Admin: 07/20/18 10:32 Dose: 1 mg Buspirone HCl (Buspar) 5 mg PO Q12 [facility] Last Admin: 07/20/18 10:32 Dose: 5 mg Clopidogrel Bisulfate (Plavix) 75 mg PO DAILY [facility] Last Admin: 07/20/18 10:26 Dose: 75 mg Desoximetasone (Topicort 0.25%) 1 ea TOP BID PRN PRN Reason: Psoriasis Last Admin: 07/18/18 18:21 Dose: 1 applic Dextrose (Dextrose 50% Inj) 0 ml IV STAT PRN; Protocol PRN Reason: Hypoglycemia Protocol Dextrose (Glutose 15) 0 gm PO ONCE PRN; Protocol PRN Reason: Hypoglycemia Protocol Enoxaparin Sodium (Lovenox) 120 mg SC Q12 [facility] Last Admin: 07/20/18 10:41 Dose: 120 mg Furosemide (Lasix) 80 mg PO Q12 [facility] Last Admin: 07/20/18 10:31 Dose: Not Given Glucagon (Glucagen Diagnostic Kit) 0 mg IM STAT PRN; Protocol PRN Reason: Hypoglycemia Protocol Dextrose (Dextrose 5% In Water 1000 Ml) 1,000 mls @ 0 mls/hr IV .Q0M PRN; Protocol PRN Reason: Hypoglycemia Protocol Insulin Aspart (Novolog) 0 unit SC [facility]; Protocol Last Admin: 07/20/18 07:46 Dose: Not Given Insulin Detemir (Levemir) 40 unit SC [facility] Last Admin: 07/19/18 22:13 Dose: 40 units Lisinopril (Zestril) 20 mg PO DAILY [facility] Last Admin: 07/20/18 10:29 Dose: Not Given Metoprolol Tartrate (Lopressor) 25 mg PO 0800,1800 [facility] Last Admin: 07/20/18 08:00 Dose: Not Given Montelukast Sodium (Singulair) 10 mg PO DAILY [facility] Last Admin: 07/19/18 11:00 Dose: 10 mg Nitroglycerin (Nitrostat Sl Tab) 0.4 mg SL Q5M PRN PRN Reason: chest pain Ondansetron HCl (Zofran Odt) 4 mg PO Q6 PRN PRN Reason: Nausea/Vomiting Pantoprazole Sodium (Protonix Ec Tab) 40 mg PO DAILY [facility] Last Admin: 07/20/18 10:27 Dose: 40 mg Rosuvastatin Calcium (Crestor) 20 mg PO HS [facility] Last Admin: 07/19/18 22:12 Dose: 20 mg Senna/Docusate Sodium (Senokot S 50 Mg-8.6 Mg) 1 tab PO DAILY [facility] Last Admin: 07/20/18 10:27 Dose: 1 tab Tamsulosin HCl (Flomax) 0.4 mg PO DAILY [facility] Last Admin: 07/20/18 10:27 Dose: 0.4 mg Tobramycin/Dexamethasone (Tobradex 0.3%-0.1% Opht Oint) 0 appl OU Q6H PRN PRN Reason: eyes Last Admin: 07/20/18 10:24 Dose: 1 applic Tramadol HCl (Ultram) 50 mg PO TID PRN PRN Reason: Pain, moderate (4-7) Last Admin: 07/20/18 10:27 Dose: 50 mg - Labs Labs: 07/20/18 06:58 07/20/18 06:58 PT 11.7 SECONDS (9.7-12.2) 07/20/18 06:58 INR 1.1 07/20/18 06:58 APTT 42 SECONDS (21-34) H 07/20/18 06:58 - Constitutional Appears: No Acute Distress - Head Exam Head Exam: ATRAUMATIC - Eye Exam Eye Exam: EOMI, Normal appearance - Respiratory Exam Respiratory Exam: Clear to Ausculation Bilateral, NORMAL BREATHING PATTERN. absent: Rhonchi, Wheezes - Cardiovascular Exam Cardiovascular Exam: REGULAR RHYTHM, +S1, +S2 - GI/Abdominal Exam GI & Abdominal Exam: Guarding, Rigid, Soft, Normal Bowel Sounds. absent: Distended, Firm, Tenderness Additional comments: Large abdominal habitus - Extremities Exam Extremities Exam: absent: Calf Tenderness, Pedal Edema - Back Exam Back Exam: absent: CVA tenderness (L), CVA tenderness (R) - Neurological Exam Neurological Exam: Alert, Awake - Psychiatric Exam Psychiatric exam: Agitated, Anxious Assessment and Plan (1) NSTEMI (non-ST elevated myocardial infarction) Assessment & Plan: Consultation: [employer], Dr. Mckeon--> Help appreciated * Management as per recommendation * Plans for transfer to [facility] today for Cardiac Catherization Labs/Imaging: -Troponins 1.21-->1.48-->.93-->0.570 (downtrending) with NO EKG changes - Echocardiogram after PCI to assess LVEF -05/2018: TGL (136), Chol (202), LDL (142), and HDL (40) -05/2018, HgbA1C( 8.2) -05/2018: TSH= 1.85 and free T4 (1.18), WNL Medications: * Plavix 75mg PO daily * ASA 81mg PO daily * Lovenox 120mg SC Q12H * Lopressor 25mg PO BID * Nitroglycerin 0.4mg SL Q5M PRN * Crestor 20mg PO HS * Lisinopril 10mg PO daily Status: Acute (2) History of gout Assessment & Plan: Allopurinol 100mg PO daily Status: Acute (3) History of heart artery stent Assessment & Plan: Continue medical management C[employer], Dr. Mckeon on board---> Help appreciated Status: Acute (4) History of psoriasis Assessment & Plan: lLotrisone 15gm external BID Topicort 0.25% apply topically BID Not currently in acute exacerbation Status: Acute (5) History of hypertension Assessment & Plan: Lopressor 25mg PO BID Lisinopril 10mg PO daily Lasix 40mg PO daily Status: Acute (6) Anxiety and depression Assessment & Plan: Buspar 5mg PO Q12H Status: Acute (7) Uncontrolled diabetes mellitus Assessment & Plan: HgbA1C: 8.2 (05/2018) Levemir 40mg SC HS ISS Low dose Status: Acute (8) Prophylactic measure Assessment & Plan: GI: Protonix 40mg PO daily DVT: Lovenox 120mg SC Q12H Disposition: Plans for transfer to [facility] today for cardiac catherization with Dr. Mckeon All plans and management discussed with Dr. Noland Status: Acute
[2018-07-20] MEDS: Insulin Detemir 100 units/ml Vial (Levemir) SC SCH (22:36)
[2018-07-21 07:27] LABS: BASO # 0.1 K/uL (0.0-0.2); BASO % 0.7 % (0.0-2.0); EOS # 0.2 K/uL (0.0-0.7); EOS % 1.7 % (0.0-4.0); HEMOGLOBIN 12.8 g/dL (12.0-18.0); LYMPH % 22.3 % (20.0-40.0); MEAN CELL VOLUME 80.7 fL (80.0-94.0); MEAN CORPUSCULAR HEMOGLOBIN 26.3 pg (27.0-31.0); MEAN CORPUSCULAR HGB CONC 32.6 g/dL (33.0-37.0); MEAN PLATELET VOLUME 10.7 fL (7.2-11.7); MONO # 0.8 K/uL (0.0-0.8); MONO % 8.9 % (0.0-10.0); NEUT # 5.9 K/uL (1.8-7.0); NEUT % 66.4 % (50.0-75.0); RBC 4.87 Mil/uL (4.40-5.90); RED CELL DISTRIBUTION WIDTH 17.6 % (11.5-14.5); WHITE BLOOD COUNT 8.9 K/uL (4.8-10.8)
[2018-07-21 07:50] LABS: ALBUMIN 3.2 g/dL (3.5-5.0); ALT/SGPT 81 U/L (21-72); AST/SGOT 86 U/L (17-59); BLOOD UREA NITROGEN 23 mg/dL (9-20); CALCIUM 8.7 mg/dl (8.6-10.4); GFR NON-AFRICAN AMERICAN > 60
[2018-07-21 08:09] VITALS: RESP 18; TEMP 98.1; O2SAT 95
[2018-07-21] MEDS: (Novolog) Insulin Aspart, Recombinant 100 u/ml 10 ml vial SC SCH ×2 (08:24→11:30)
[2018-07-21] MEDS: Pantoprazole 40 mg EC Tab PO SCH (10:27)
[2018-07-21] MEDS: Docusate-Senna 50 mg-8.6 mg Tab PO SCH (10:27)
[2018-07-21 10:34] VITALS: BP 110/66
[2018-07-21] MEDS: Enoxaparin 120 mg Syringe SC SCH (11:00)
--- NOTE | 2018-07-21 13:29 | CP.PCM.PN ---
Subjective - Date & Time of Evaluation Date of Evaluation: 07/21/18 Time of Evaluation: 09:35 - Subjective Subjective: Medicine progress note ( Dr. Noland's service) Patient was seen and examined at bedside. Patient denies any discomfort, however, he continues to be very argumentative about his current condition; he believes his INR is not at its numerical goal, however, patient is not on anti- coagulation treatment. I believe patient is mistaken and confused from his medical research from various website. During the encounter, I went over patient's current medical condition and goal of treatment. Patient states that he understands and that he is appreciates the explanation. Upon ROS, patient denies chest pain, palpitations, shortness of breath and dizziness. Objective - Vital Signs/Intake and Output Vital Signs (last 24 hours): Temp Pulse Resp BP Pulse Ox 98.1 F 72 18 110/66 95 07/21/18 07:12 07/21/18 07:12 07/21/18 07:12 07/21/18 10:28 07/21/18 07:12 Intake and Output: 07/21/18 07/21/18 06:59 18:59 Output Total 500 Balance -500 - Medications Medications: Current Medications Allopurinol (Zyloprim) 100 mg PO DAILY [facility] Last Admin: 07/21/18 10:24 Dose: 100 mg Aspirin (Ecotrin) 81 mg PO DAILY [facility] Last Admin: 07/21/18 10:28 Dose: 81 mg Betamethasone/Clotrimazole (Lotrisone) 15 gm EXT BID PRN PRN Reason: Itching / Pruritus Last Admin: 07/18/18 18:22 Dose: 1 applic Buspirone HCl (Buspar) 5 mg PO Q12 [facility] Last Admin: 07/20/18 22:27 Dose: 5 mg Clopidogrel Bisulfate (Plavix) 75 mg PO DAILY [facility] Last Admin: 07/21/18 10:28 Dose: 75 mg Desoximetasone (Topicort 0.25%) 1 ea TOP BID PRN PRN Reason: Psoriasis Last Admin: 07/18/18 18:21 Dose: 1 applic Dextrose (Dextrose 50% Inj) 0 ml IV STAT PRN; Protocol PRN Reason: Hypoglycemia Protocol Dextrose (Glutose 15) 0 gm PO ONCE PRN; Protocol PRN Reason: Hypoglycemia Protocol Furosemide (Lasix) 40 mg PO DAILY [facility] Last Admin: 07/21/18 10:28 Dose: 40 mg Glucagon (Glucagen Diagnostic Kit) 0 mg IM STAT PRN; Protocol PRN Reason: Hypoglycemia Protocol Dextrose (Dextrose 5% In Water 1000 Ml) 1,000 mls @ 0 mls/hr IV .Q0M PRN; Protocol PRN Reason: Hypoglycemia Protocol Insulin Aspart (Novolog) 0 unit SC [facility]; Protocol Last Admin: 07/21/18 08:24 Dose: 1 u Insulin Detemir (Levemir) 40 unit SC [facility] Last Admin: 07/20/18 22:36 Dose: Not Given Ketorolac Tromethamine (Toradol) 30 mg IVP STAT STA Stop: 07/21/18 13:12 Lisinopril (Zestril) 10 mg PO DAILY [facility] Metoprolol Tartrate (Lopressor) 25 mg PO BID [facility] Last Admin: 07/21/18 10:26 Dose: 25 mg Montelukast Sodium (Singulair) 10 mg PO DAILY [facility] Last Admin: 07/19/18 11:00 Dose: 10 mg Nitroglycerin (Nitrostat Sl Tab) 0.4 mg SL Q5M PRN PRN Reason: chest pain Ondansetron HCl (Zofran Odt) 4 mg PO Q6 PRN PRN Reason: Nausea/Vomiting Pantoprazole Sodium (Protonix Ec Tab) 40 mg PO DAILY [facility] Last Admin: 07/21/18 10:27 Dose: 40 mg Rosuvastatin Calcium (Crestor) 20 mg PO HS [facility] Last Admin: 07/20/18 22:27 Dose: 20 mg Senna/Docusate Sodium (Senokot S 50 Mg-8.6 Mg) 1 tab PO DAILY [facility] Last Admin: 07/21/18 10:27 Dose: 1 tab Tamsulosin HCl (Flomax) 0.4 mg PO DAILY [facility] Last Admin: 07/21/18 10:27 Dose: 0.4 mg Tobramycin/Dexamethasone (Tobradex 0.3%-0.1% Opht Oint) 0 appl OU Q6H PRN PRN Reason: eyes Last Admin: 07/20/18 10:24 Dose: 1 applic - Labs Labs: 07/21/18 07:11 07/21/18 07:11 PT 11.7 SECONDS (9.7-12.2) 07/20/18 06:58 INR 1.1 07/20/18 06:58 APTT 42 SECONDS (21-34) H 07/20/18 06:58 - Constitutional Appears: Well, No Acute Distress - Head Exam Head Exam: ATRAUMATIC, NORMAL INSPECTION - Eye Exam Eye Exam: EOMI - ENT Exam ENT Exam: Mucous Membranes Moist - Respiratory Exam Respiratory Exam: Clear to Ausculation Bilateral, NORMAL BREATHING PATTERN. absent: Prolonged Expiratory Phase, Rhonchi, Wheezes, Respiratory Distress - Cardiovascular Exam Cardiovascular Exam: REGULAR RHYTHM, +S1, +S2. absent: Murmur - GI/Abdominal Exam GI & Abdominal Exam: Soft, Normal Bowel Sounds Additional comments: Large abdominal habitus - Extremities Exam Extremities Exam: absent: Calf Tenderness - Neurological Exam Neurological Exam: Alert, Awake, Oriented x3 - Psychiatric Exam Psychiatric exam: Agitated, Anxious Assessment and Plan (1) NSTEMI (non-ST elevated myocardial infarction) Assessment & Plan: Consultation: Interventional TechnologistDr. Mckeon--> Help appreciated * Management as per recommendation * Plans for transfer to [facility] today for Cardiac Catherization Labs/Imaging: -Troponins 1.21-->1.48-->.93-->0.570 (downtrending) with NO EKG changes - Echocardiogram after PCI to assess LVEF -05/2018: TGL (136), Chol (202), LDL (142), and HDL (40) -05/2018, HgbA1C( 8.2) -05/2018: TSH= 1.85 and free T4 (1.18), WNL Medications: * Plavix 75mg PO daily * ASA 81mg PO daily * Lovenox 120mg SC Q12H * Lopressor 25mg PO BID * Nitroglycerin 0.4mg SL Q5M PRN * Crestor 20mg PO HS * Lisinopril 10mg PO daily Status: Acute (2) History of gout Assessment & Plan: Allopurinol 100mg PO daily Status: Acute (3) History of heart artery stent Assessment & Plan: Continue medical management Interventional TechnologistDr. Mckeon on board---> Help appreciated Status: Acute (4) History of psoriasis Assessment & Plan: Lotrisone 15gm external BID Topicort 0.25% apply topically BID Not currently in acute exacerbation Status: Acute (5) History of hypertension Assessment & Plan: Lopressor 25mg PO BID Lisinopril 10mg PO daily Lasix 40mg PO daily Status: Acute (6) Anxiety and depression Assessment & Plan: Buspar 5mg PO Q12H Status: Acute (7) Uncontrolled diabetes mellitus Assessment & Plan: HgbA1C: 8.2 (05/2018) Levemir 40mg SC HS ISS Low dose Status: Acute (8) Prophylactic measure Assessment & Plan: GI: Protonix 40mg PO daily DVT: Lovenox 120mg SC Q12H Disposition: Please discharge patient home as he is cleared by his medical team Please continue the following medications: - Plavix 75mg PO daily due recent cardiac stent placement - Aspirin 81mg PO daily - Lopressor 25mg PO BID - Buspar 5mg PO Q12H - Allopurinol 100mg PO daily - Lasix 20mg PO daily and if you notice more swelling in your lower extremities or weight gain, please increase lasix dose twice daily - Protonix 40mg PO daily - Flomax 0.4mg PO daily - Crestor 20mg PO HS - Lisinopril 10mg PO daily - Singulair 10mg PO daily Please resume your insulin at home as prescribed and always check your blood sugar before administration of insulin (Levemir 40mg SC HS and Apidra 16units SC TIDAC). Please always check your blood pressure before take BP medications. If BP is > 120/80, please call Dr. Noland's office for medication reconciliation Please keep a low salt diet and water intake Please follow up with Dr. Noland in 1 week. Please follow up with professor of food biochemistry Dr. Mckeon in 1-2 weeks. Please return to the emergency room if symptoms return or worsen. All plans and management discussed with Dr. Noland Status: Acute
[2018-07-21 14:42] VITALS: PULSE 83
--- NOTE | 2018-07-22 07:43 | CARD ---
APPROVED REPORT Date of service: 07/18/2018 EKG Measurement Heart [id number] <Conclusion> Normal sinus rhythm Minimal voltage criteria for LVH, may be normal variant Borderline ECG
== END 2018-07-21 16:05 | disposition home or self-care (01) | DRG 121 ==
LOC: C.ER 22:41 → C.6T 07-18 02:03
PROVIDERS: ADMIT Internal Medicine Pulmonary Disease; ATTEND Internal Medicine Pulmonary Disease
DX: I21.4 Non-ST elevation (NSTEMI) myocardial infarction (principal); I11.0 Hypertensive heart disease with heart failure; I50.9 Heart failure, unspecified; J44.9 Chronic obstructive pulmonary disease, unspecified; E11.65 Type 2 diabetes mellitus with hyperglycemia; I25.2 Old myocardial infarction; I25.10 Atherosclerotic heart disease of native coronary artery without angina pectoris; E78.00 Pure hypercholesterolemia, unspecified; Z79.52 Long term (current) use of systemic steroids; Z87.891 Personal history of nicotine dependence; Z95.5 Presence of coronary angioplasty implant and graft; D72.829 Elevated white blood cell count, unspecified; T38.0X5A Adverse effect of glucocorticoids and synthetic analogues, initial encounter

== ENCOUNTER 2018-08-21 03:00 | Observation (INO) | payer OTHER ==
[2018-08-21 03:00] VITALS: BMI 50.8
[2018-08-21 03:45] LABS: BASO # 0.1 K/uL (0.0-0.2); BASO % 0.8 % (0.0-2.0); EOS % 0.5 % (0.0-4.0); HEMOGLOBIN 13.3 g/dL (12.0-18.0); LYMPH # 1.9 K/uL (1.0-4.3); LYMPH % 21.9 % (20.0-40.0); MEAN CELL VOLUME 83.1 fL (80.0-94.0); MEAN CORPUSCULAR HEMOGLOBIN 26.9 pg (27.0-31.0); MEAN CORPUSCULAR HGB CONC 32.4 g/dL (33.0-37.0); MEAN PLATELET VOLUME 11.5 fL (7.2-11.7); MONO # 0.6 K/uL (0.0-0.8); MONO % 6.7 % (0.0-10.0); NEUT # 6.1 K/uL (1.8-7.0); NEUT % 70.1 % (50.0-75.0); RBC 4.93 Mil/uL (4.40-5.90); RED CELL DISTRIBUTION WIDTH 16.1 % (11.5-14.5); WHITE BLOOD COUNT 8.7 K/uL (4.8-10.8)
[2018-08-21 03:58] LABS: ALB/GLOB RATIO 1.2 (1.0-2.1); ALBUMIN 3.8 g/dL (3.5-5.0); ALT/SGPT 63 U/L (21-72); AST/SGOT 67 U/L (17-59); BLOOD UREA NITROGEN 26 mg/dL (9-20); CALCIUM 8.8 mg/dl (8.6-10.4); GFR NON-AFRICAN AMERICAN > 60
[2018-08-21 04:09] LABS: B-TYPE NATRIURETIC PEPTIDE 312 pg/mL (0-900)
--- NOTE | 2018-08-21 04:37 | C.PDOC ---
History Of Present Illness 63 y/o male pt presents to the ER c/o chest pain. Pt reports he woke up with it today. Chest pain is located substernal and is localized. Pt denies SOB, abdominal pain, nausea, vomiting, fever and chills. Pt has an excessive history. Pt has an CT x1 moth ago and currently has no pain. Time Seen by Provider: 08/21/18 03:24 Chief Complaint (Nursing): Chest Pain History Per: Patient History/Exam Limitations: no limitations Onset/Duration Of Symptoms: Hrs Current Symptoms Are (Timing): Still Present Past Medical History Reviewed: Historical Data, Nursing Documentation, Vital Signs Vital Signs: Last Vital Signs Temp Pulse 91 H 08/21/18 03:17 Resp 20 08/21/18 03:08 BP 112/62 08/21/18 03:17 Pulse Ox 95 08/21/18 03:08 - Medical History PMH: Arthritis, CAD, CHF, COPD, HTN, Hypercholesterolemia Surgical History: Coronary Stent Denies: Pacemaker - [facility] Procedures ASSISTANCE WITH RESPIRATORY VENTILATION, <24 HRS, CPAP (07/07/15) FLUOROSCOPY OF LEFT HEART USING LOW OSMOLAR CONTRAST (09/20/16) FLUOROSCOPY OF MULT COR ART USING L OSM CONTRAST (09/20/16) MEASURE OF CARDIAC SAMPL & PRESSURE, L HEART, PERC APPROACH (09/20/16) Family History: States: Unknown Family Hx - Social History Hx Tobacco Use: No Hx Alcohol Use: No Hx Substance Use: No - Immunization History Hx Tetanus Toxoid Vaccination: No Hx Influenza Vaccination: No Hx Pneumococcal Vaccination: No Review Of Systems Except As Marked, All Systems Reviewed And Found Negative. Constitutional: Negative for: Fever, Chills Cardiovascular: Positive for: Chest Pain (substernal) Respiratory: Negative for: Cough, Shortness of Breath Gastrointestinal: Negative for: Nausea, Vomiting, Abdominal Pain Musculoskeletal: Negative for: Back Pain Physical Exam - Physical Exam Appears: Non-toxic, No Acute Distress Skin: Warm, Dry Head: Normacephalic Eye(s): bilateral: Normal Inspection, EOMI Neck: Normal ROM, Supple Chest: Symmetrical Cardiovascular: Rhythm Regular Respiratory: Normal Breath Sounds Gastrointestinal/Abdominal: Soft, No Tenderness Extremity: Normal ROM (x4) Neurological/Psych: Oriented x3, Normal Speech ED Course And Treatment - Laboratory Results Result Diagrams: 08/21/18 03:41 08/21/18 03:41 ECG: Interpreted By Me, Viewed By Me ECG Rhythm: Sinus Rhythm Interpretation Of ECG: LAD; LDH Rate From EC O2 Sat by Pulse Oximetry: 95 (RA) Pulse Ox Interpretation: Normal Medical Decision Making Medical Decision Making: Impression: chest pain Plan: -- ekg -- chem labs -- blood work -- CXR Disposition - Disposition Disposition Time: 06:00 Condition: STABLE Forms: [employer] (Croatian) - Clinical Impression Clinical Impression: Chest pain - Scribe Statement The provider has reviewed the documentation as recorded by the Macario Hubbard Do Provider Attestation: All medical record entries made by the Scribe were at my direction and personally dictated by me. I have reviewed the chart and agree that the record accurately reflects my personal performance of the history, physical exam, medical decision making, and the department course for this patient. I have also personally directed, reviewed, and agree with the discharge instructions and disposition.
[2018-08-21] MEDS ORDERED: Dextrose 50% SYRINGE Inj (50 ml) IV PRN (06:37)
[2018-08-21] MEDS ORDERED: Glucagon Recombinant 1 mg Inj IM PRN (06:37)
[2018-08-21] MEDS ORDERED: Bacitracin Ointment 30 GM TUBE TOP PRN (06:42)
[2018-08-21] MEDS: (Novolin R) Insulin Human Regular 100 units/ml vial SC SCH ×5 (08:10→21:40)
[2018-08-21] MEDS: Tobramycin 0.3% OPHT SOLN OS SCH ×6 (08:21→20:39)
[2018-08-21] MEDS: INSULIN GLULISINE SQ SCH ×2 (08:38→13:14)
[2018-08-21] MEDS: Pantoprazole 40 mg EC Tab PO SCH (09:32)
[2018-08-21] MEDS: Enoxaparin 40 mg Syringe SC SCH ×2 (09:32→17:30)
[2018-08-21] MEDS ORDERED: CHLORDIAZEPOXIDE 25 MG PO SCH (10:00)
[2018-08-21] MEDS ORDERED: ALLOPURINOL 100 MG PO SCH (10:00)
[2018-08-21] MEDS: Desoximetasone 0.25% Cream(15 gm) TOP SCH ×2 (10:22→17:31)
[2018-08-21] MEDS: Clotrimazole/Betamethasone Cream(15 gm) EXT SCH ×2 (10:23→17:32)
--- NOTE | 2018-08-21 12:37 | RAD ---
Date of service: 08/21/2018 PROCEDURE: CHEST RADIOGRAPH, 1 VIEW HISTORY: chest pain COMPARISON: 07/18/2018 FINDINGS: LUNGS: Clear. PLEURA: No pneumothorax or pleural fluid seen. CARDIOVASCULAR: No aortic atherosclerotic calcification present. Normal. OSSEOUS STRUCTURES: No significant abnormalities. VISUALIZED UPPER ABDOMEN: Normal. OTHER FINDINGS: None. IMPRESSION: No active disease.
[2018-08-21] MEDS ORDERED: Potassium Chloride 20 mEq ER Tab PO ONE (12:43)
[2018-08-21 13:45] LABS: CK-MB 1.9 ng/mL (0.0-3.38)
--- NOTE | 2018-08-21 14:22 | CP.PCM.HP ---
History of Present Illness - History of Present Illness History of Present Illness: 63 y/o male pt presents to the ER c/o chest pain. Pt reports he woke up with it today. Chest pain is located substernal and is localized. Pt denies SOB, abdominal pain, nausea, vomiting, fever and chills. Pt has an excessive history. Pt has an OR x1 moth ago and currently has no pain. admission EKG shows normal sinus rhythm with no any ST-T changes. Patient had an echocardiogram done in May 2018 which was reported as normal left ventricle ejection fraction. Patient also had a cardiac catheterization report not available apparently had angioplasty stent. Present on Admission - Present on Admission Any Indicators Present on Admission: No Review of Systems - Review of Systems All systems: reviewed and no additional remarkable complaints except (atypical retrosternal chest pressure) Past Patient History - Infectious Disease Hx of Infectious Diseases: None - Tetanus Immunizations Tetanus Immunization: Up to Date - Past Medical History & Family History Past Medical History?: Yes - Past Social History Smoking Status: Former Smoker - CARDIAC Hx Congestive Heart Failure: Yes Hx Hypercholesterolemia: Yes Hx Hypertension: Yes Hx Pacemaker: No - PULMONARY Hx Chronic Obstructive Pulmonary Disease (COPD): Yes - NEUROLOGICAL Hx Neurological Disorder: No - HEENT Other/Comment: Catract Extraction 07/2017 - RENAL Hx Chronic Kidney Disease: No - ENDOCRINE/METABOLIC Hx Diabetes Mellitus Type 1: Yes - HEMATOLOGICAL/ONCOLOGICAL Hx Blood Transfusions: No Hx Bruising: Yes - INTEGUMENTARY Hx Dermatological Problems: Yes Hx Psoriasis: Yes - MUSCULOSKELETAL/RHEUMATOLOGICAL Hx Falls: No - GASTROINTESTINAL Hx Gastrointestinal Disorders: No - GENITOURINARY/GYNECOLOGICAL Hx Prostate Problems: Yes - PSYCHIATRIC Hx Substance Use: No - SURGICAL HISTORY Hx Coronary Stent: Yes - ANESTHESIA Hx Anesthesia: Yes Hx Anesthesia Reactions: No Hx Malignant Hyperthermia: No Meds Allergies/Adverse Reactions: Allergies Allergy/AdvReac Type Severity Reaction Status Date / Time No Known Allergies Allergy Verified 08/21/18 03:11 Physical Exam - Constitutional Appears: Well - Head Exam Head Exam: ATRAUMATIC, NORMAL INSPECTION, NORMOCEPHALIC - Eye Exam Eye Exam: EOMI, Normal appearance, PERRL Pupil Exam: NORMAL ACCOMODATION, PERRL - ENT Exam ENT Exam: Mucous Membranes Moist, Normal Exam - Neck Exam Neck exam: Positive for: Normal Inspection - Respiratory Exam Respiratory Exam: Clear to Auscultation Bilateral, NORMAL BREATHING PATTERN - Cardiovascular Exam Cardiovascular Exam: REGULAR RHYTHM - GI/Abdominal Exam GI & Abdominal Exam: Normal Bowel Sounds, Soft. absent: Tenderness - Rectal Exam Rectal Exam: NORMAL INSPECTION - Exam Exam: Circumcision, NORMAL INSPECTION External exam: NORMAL EXTERNAL EXAM Speculum exam: NORMAL SPECULUM EXAM Bimanual exam: NORMAL BIMANUAL EXAM - Extremities Exam Extremities exam: Positive for: normal inspection - Back Exam Back exam: NORMAL INSPECTION - Neurological Exam Neurological exam: Alert, CN II-XII Intact, Normal Gait, Oriented x3, Reflexes Normal - Psychiatric Exam Psychiatric exam: Normal Affect, Normal Mood - Skin Skin Exam: Dry, Intact, Normal Color, Warm Results - Vital Signs Recent Vital Signs: Last Vital Signs Temp 97.4 F L 08/21/18 07:45 Pulse 68 08/21/18 12:00 Resp 20 08/21/18 07:45 BP 114/66 08/21/18 09:33 Pulse Ox 96 08/21/18 07:45 - Labs Result Diagrams: 08/21/18 03:41 08/21/18 03:41 Labs: Laboratory Results - last 24 hr 08/21/18 08/21/18 08/21/18 03:41 03:41 07:22 WBC 8.7 RBC 4.93 Hgb 13.3 Hct 41.0 MCV 83.1 D MCH 26.9 L MCHC 32.4 L RDW 16.1 H Plt Count 255 MPV 11.5 Neut % (Auto) 70.1 Lymph % (Auto) 21.9 [place] % (Auto) 6.7 Eos % (Auto) 0.5 Baso % (Auto) 0.8 Neut # (Auto) 6.1 Lymph # (Auto) 1.9 [place] # (Auto) 0.6 Eos # (Auto) 0.0 Baso # (Auto) 0.1 Sodium 133 Potassium 3.4 L Chloride 96 L Carbon Dioxide 22 Anion Gap 18 BUN 26 H Creatinine 0.9 Est GFR ( Amer) > 60 Est GFR (Non-Af Amer) > 60 POC Glucose (mg/dL) 113 H Random Glucose 287 H D Calcium 8.8 Total Bilirubin 0.5 AST 67 H D ALT 63 Alkaline Phosphatase 127 H D Total Creatine Kinase CK-MB (Mass) Troponin I 0.0330 NT-Pro-B Natriuret Pep 312 Total Protein 7.0 Albumin 3.8 Globulin 3.2 Albumin/Globulin Ratio 1.2 08/21/18 08/21/18 11:11 13:00 WBC RBC Hgb Hct MCV MCH MCHC RDW Plt Count MPV Neut % (Auto) Lymph % (Auto) [place] % (Auto) Eos % (Auto) Baso % (Auto) Neut # (Auto) Lymph # (Auto) [place] # (Auto) Eos # (Auto) Baso # (Auto) Sodium Potassium Chloride Carbon Dioxide Anion Gap BUN Creatinine Est GFR ( Amer) Est GFR (Non-Af Amer) POC Glucose (mg/dL) 278 H Random Glucose Calcium Total Bilirubin AST ALT Alkaline Phosphatase Total Creatine Kinase 44 L CK-MB (Mass) 1.90 Troponin I NT-Pro-B Natriuret Pep Total Protein Albumin Globulin Albumin/Globulin Ratio Assessment & Plan (1) Chest pain Status: Acute (2) History of heart artery stent Status: Chronic (3) History of hypertension Status: Chronic (4) History of psoriasis Status: Chronic (5) CAD (coronary artery disease) Status: Chronic Priority: Medium
[2018-08-21 14:44] LABS: TROPONIN I 0.081 ng/mL (0.00-0.120)
[2018-08-21] MEDS: (Novolog) Insulin Aspart, Recombinant 100 u/ml 10 ml vial SC SCH (17:20)
[2018-08-21] MEDS: Tmp-Smz 800 mg-160 mg DS Tab PO SCH (17:29)
[2018-08-21 20:02] LABS: CK-MB 1.64 ng/mL (0.0-3.38); TROPONIN I 0.047 ng/mL (0.00-0.120)
[2018-08-21] MEDS: Insulin Detemir 100 units/ml Vial (Levemir) SC SCH (21:34)
[2018-08-21] MEDS ORDERED: ROSUVASTATIN CALCIUM 40 MG PO SCH (22:00)
[2018-08-22] MEDS: Tobramycin 0.3% OPHT SOLN OS SCH ×6 (00:24→19:36)
[2018-08-22] MEDS: Tmp-Smz 800 mg-160 mg DS Tab PO SCH ×2 (06:23→18:11)
[2018-08-22] MEDS: (Novolin R) Insulin Human Regular 100 units/ml vial SC SCH ×4 (08:22→21:22)
[2018-08-22] MEDS: (Novolog) Insulin Aspart, Recombinant 100 u/ml 10 ml vial SC SCH ×3 (08:22→16:30)
[2018-08-22 08:29] LABS: BLOOD UREA NITROGEN 28 mg/dL (9-20); CALCIUM 8.8 mg/dl (8.6-10.4); GFR NON-AFRICAN AMERICAN > 60
[2018-08-22] MEDS: Pantoprazole 40 mg EC Tab PO SCH (09:40)
[2018-08-22] MEDS: Enoxaparin 40 mg Syringe SC SCH ×2 (09:41→18:11)
[2018-08-22] MEDS: Desoximetasone 0.25% Cream(15 gm) TOP SCH ×2 (09:42→18:12)
[2018-08-22] MEDS: Clotrimazole/Betamethasone Cream(15 gm) EXT SCH ×2 (09:42→18:20)
--- NOTE | 2018-08-22 16:21 | CP.PCM.PN ---
Subjective - Date & Time of Evaluation Date of Evaluation: 08/22/18 Time of Evaluation: 16:18 - Subjective Subjective: NO FURTHER CP TNI NEG D/C HOME IN AM OUT PT IV CHARMAINE Objective - Vital Signs/Intake and Output Vital Signs (last 24 hours): Temp Pulse Resp BP Pulse Ox 97.7 F 88 20 116/70 97 08/22/18 15:00 08/22/18 15:00 08/22/18 15:00 08/22/18 15:00 08/22/18 15:00 - Medications Medications: Current Medications Allopurinol (Zyloprim) 100 mg PO DAILY [facility] Last Admin: 08/22/18 09:41 Dose: 100 mg Aspirin (Ecotrin) 81 mg PO DAILY [facility] Last Admin: 08/22/18 09:41 Dose: 81 mg Bacitracin (Bacitracin) 1 gm TOP TID PRN PRN Reason: Inflammation Last Admin: 08/22/18 11:17 Dose: 1 applic Betamethasone/Clotrimazole (Lotrisone) 15 gm EXT BID [facility] Last Admin: 08/22/18 09:42 Dose: 15 gm Chlordiazepoxide (Librium) 25 mg PO DAILY [facility] Last Admin: 08/22/18 09:40 Dose: Not Given Clopidogrel Bisulfate (Plavix) 75 mg PO DAILY [facility] Last Admin: 08/22/18 09:41 Dose: 75 mg Desoximetasone (Topicort 0.25%) 1 ea TOP BID [facility] Last Admin: 08/22/18 09:42 Dose: 1 applic Dextrose (Dextrose 50% Inj) 0 ml IV STAT PRN; Protocol PRN Reason: Hypoglycemia Protocol Dextrose (Glutose 15) 0 gm PO ONCE PRN; Protocol PRN Reason: Hypoglycemia Protocol Docusate Sodium (Colace) 200 mg PO DAILY [facility] Last Admin: 08/22/18 09:40 Dose: 200 mg Enoxaparin Sodium (Lovenox) 40 mg SC BID [facility] Last Admin: 08/22/18 09:41 Dose: 40 mg Furosemide (Lasix) 40 mg PO DAILY [facility] Last Admin: 08/22/18 09:41 Dose: 40 mg Glucagon (Glucagen Diagnostic Kit) 0 mg IM STAT PRN; Protocol PRN Reason: Hypoglycemia Protocol Dextrose (Dextrose 5% In Water 1000 Ml) 1,000 mls @ 0 mls/hr IV .Q0M PRN; Protocol PRN Reason: Hypoglycemia Protocol Influenza Virus Vaccine (Fluzone Quad [id number]) 60 mcg IM .ONCE ONE Stop: 08/23/18 10:01 Insulin Aspart (Novolog) 30 unit SC TIDAC [facility] Last Admin: 08/22/18 12:22 Dose: 30 units Insulin Detemir (Levemir) 40 unit SC HS [facility] Last Admin: 08/21/18 21:34 Dose: 40 units Insulin Human Regular (Novolin R) 0 unit SC ACHS [facility]; Protocol Last Admin: 08/22/18 12:22 Dose: 6 units Metoprolol Tartrate (Lopressor) 25 mg PO BID [facility] Last Admin: 08/22/18 09:41 Dose: 25 mg Montelukast Sodium (Singulair) 10 mg PO DAILY [facility] Last Admin: 08/22/18 09:40 Dose: 10 mg Pantoprazole Sodium (Protonix Ec Tab) 40 mg PO DAILY [facility] Last Admin: 08/22/18 09:40 Dose: 40 mg Rosuvastatin Calcium (Crestor) 40 mg PO [facility] Last Admin: 08/21/18 21:35 Dose: 40 mg Tamsulosin HCl (Flomax) 0.4 mg PO DAILY [facility] Last Admin: 08/22/18 09:41 Dose: 0.4 mg Tobramycin Sulfate (Tobrex 0.3% [facility]) 1 drop OS Q4 [facility] Last Admin: 08/22/18 12:53 Dose: Not Given Trimethoprim/Sulfamethoxazole (Bactrim Ds Tab) 1 tab PO Q12H [facility]; Protocol Last Admin: 08/22/18 06:23 Dose: 1 tab - Labs Labs: 08/21/18 03:41 08/22/18 08:09 Assessment and Plan (1) Chest pain Status: Acute (2) History of heart artery stent Status: Chronic (3) History of hypertension Status: Chronic (4) History of psoriasis Status: Chronic (5) CAD (coronary artery disease) Status: Chronic
--- NOTE | 2018-08-22 17:15 | CP.PCM.PN ---
Subjective - Date & Time of Evaluation Date of Evaluation: 08/22/18 Time of Evaluation: 17:12 - Subjective Subjective: PGY3 House doctor note This patient was seen and examined for a house doctor note The patient is complaing of a swollen neck, glands in the throat, and "big red face" patient has no lymphadenopathy on exam no fever no chills patient has no swollen tonsils will order throat culture flonase as patient is stuffed up Dwight hernández pgy3 patient is extermely demanding somehow got number to floor and will repeatedly call the floor instead of using call streeter he is verbally abusive to staff he was demanding that i print off all of his lab work and go over each lab with him even though i am not his primary MD was explained that this is inappropriate and if he wants medical records he needs to contact medical records as i cannot provide them for him Objective - Vital Signs/Intake and Output Vital Signs (last 24 hours): Temp Pulse Resp BP Pulse Ox 97.7 F 88 20 116/70 97 08/22/18 15:00 08/22/18 15:00 08/22/18 15:00 08/22/18 15:00 08/22/18 15:00 Intake and Output: 08/22/18 08/22/18 06:59 18:59 Output Total 1300 Balance -1300 - Medications Medications: Current Medications Allopurinol (Zyloprim) 100 mg PO DAILY [facility] Last Admin: 08/22/18 09:41 Dose: 100 mg Aspirin (Ecotrin) 81 mg PO DAILY [facility] Last Admin: 08/22/18 09:41 Dose: 81 mg Bacitracin (Bacitracin) 1 gm TOP TID PRN PRN Reason: Inflammation Last Admin: 08/22/18 11:17 Dose: 1 applic Betamethasone/Clotrimazole (Lotrisone) 15 gm EXT BID [facility] Last Admin: 08/22/18 09:42 Dose: 15 gm Chlordiazepoxide (Librium) 25 mg PO DAILY [facility] Last Admin: 08/22/18 09:40 Dose: Not Given Clopidogrel Bisulfate (Plavix) 75 mg PO DAILY [facility] Last Admin: 08/22/18 09:41 Dose: 75 mg Desoximetasone (Topicort 0.25%) 1 ea TOP BID [facility] Last Admin: 08/22/18 09:42 Dose: 1 applic Dextrose (Dextrose 50% Inj) 0 ml IV STAT PRN; Protocol PRN Reason: Hypoglycemia Protocol Dextrose (Glutose 15) 0 gm PO ONCE PRN; Protocol PRN Reason: Hypoglycemia Protocol Docusate Sodium (Colace) 200 mg PO DAILY [facility] Last Admin: 08/22/18 09:40 Dose: 200 mg Enoxaparin Sodium (Lovenox) 40 mg SC BID [facility] Last Admin: 08/22/18 09:41 Dose: 40 mg Fluticasone Propionate (Flonase) 2 spr RIYA BID [facility] Furosemide (Lasix) 40 mg PO DAILY [facility] Last Admin: 08/22/18 09:41 Dose: 40 mg Glucagon (Glucagen Diagnostic Kit) 0 mg IM STAT PRN; Protocol PRN Reason: Hypoglycemia Protocol Dextrose (Dextrose 5% In Water 1000 Ml) 1,000 mls @ 0 mls/hr IV .Q0M PRN; Protocol PRN Reason: Hypoglycemia Protocol Influenza Virus Vaccine (Fluzone Quad [id number]) 60 mcg IM .ONCE ONE Stop: 08/23/18 10:01 Insulin Aspart (Novolog) 30 unit SC TIDAC [facility] Last Admin: 08/22/18 12:22 Dose: 30 units Insulin Detemir (Levemir) 40 unit SC HS [facility] Last Admin: 08/21/18 21:34 Dose: 40 units Insulin Human Regular (Novolin R) 0 unit SC [facility]; Protocol Last Admin: 08/22/18 12:22 Dose: 6 units Metoprolol Tartrate (Lopressor) 25 mg PO BID [facility] Last Admin: 08/22/18 09:41 Dose: 25 mg Montelukast Sodium (Singulair) 10 mg PO DAILY [facility] Last Admin: 08/22/18 09:40 Dose: 10 mg Pantoprazole Sodium (Protonix Ec Tab) 40 mg PO DAILY [facility] Last Admin: 08/22/18 09:40 Dose: 40 mg Rosuvastatin Calcium (Crestor) 40 mg PO HS [facility] Last Admin: 08/21/18 21:35 Dose: 40 mg Tamsulosin HCl (Flomax) 0.4 mg PO DAILY [facility] Last Admin: 08/22/18 09:41 Dose: 0.4 mg Tobramycin Sulfate (Tobrex 0.3% Ophth Soln) 1 drop OS Q4 [facility] Last Admin: 08/22/18 12:53 Dose: Not Given Trimethoprim/Sulfamethoxazole (Bactrim Ds Tab) 1 tab PO Q12H [facility]; Protocol Last Admin: 08/22/18 06:23 Dose: 1 tab - Labs Labs: 08/21/18 03:41 08/22/18 08:09
[2018-08-22] MEDS: Fluticasone Nasal 50 mcg/Spray NAS SCH (19:34)
[2018-08-22] MEDS: Insulin Detemir 100 units/ml Vial (Levemir) SC SCH (22:13)
[2018-08-23] MEDS: Tobramycin 0.3% OPHT SOLN OS SCH ×6 (00:09→22:19)
[2018-08-23] MEDS: Tmp-Smz 800 mg-160 mg DS Tab PO SCH ×2 (06:26→18:48)
[2018-08-23] MEDS: (Novolog) Insulin Aspart, Recombinant 100 u/ml 10 ml vial SC SCH ×3 (08:23→17:24)
[2018-08-23] MEDS: (Novolin R) Insulin Human Regular 100 units/ml vial SC SCH ×4 (08:23→22:18)
[2018-08-23] MEDS: Pantoprazole 40 mg EC Tab PO SCH (09:07)
[2018-08-23] MEDS: Clotrimazole/Betamethasone Cream(15 gm) EXT SCH ×2 (09:08→18:49)
[2018-08-23] MEDS: Enoxaparin 40 mg Syringe SC SCH ×3 (09:08→17:28)
[2018-08-23] MEDS: Desoximetasone 0.25% Cream(15 gm) TOP SCH ×2 (09:09→18:49)
[2018-08-23] MEDS ORDERED: Influenza Vaccine 60 MCG/0.5 ML SYR (3 yr & up) IM ONE (10:00)
[2018-08-23] MEDS: Fluticasone Nasal 50 mcg/Spray NAS SCH ×2 (10:49→17:29)
--- NOTE | 2018-08-23 11:24 | CP.PCM.PN ---
Subjective - Date & Time of Evaluation Date of Evaluation: 08/23/18 Time of Evaluation: 11:23 - Subjective Subjective: PATIENT SEEN AND EXAMINED AT THE BEDSIDE Objective - Vital Signs/Intake and Output Vital Signs (last 24 hours): Temp Pulse Resp BP Pulse Ox 97.4 F L 76 20 152/74 H 96 08/23/18 07:15 08/23/18 09:38 08/23/18 07:15 08/23/18 09:38 08/23/18 07:15 Intake and Output: 08/23/18 08/23/18 06:59 18:59 Intake Total 250 Balance 250 - Medications Medications: Current Medications Allopurinol (Zyloprim) 100 mg PO DAILY [facility] Last Admin: 08/23/18 09:08 Dose: 100 mg Aspirin (Ecotrin) 81 mg PO DAILY [facility] Last Admin: 08/23/18 09:07 Dose: 81 mg Bacitracin (Bacitracin) 1 gm TOP TID PRN PRN Reason: Inflammation Last Admin: 08/22/18 11:17 Dose: 1 applic Betamethasone/Clotrimazole (Lotrisone) 15 gm EXT BID [facility] Last Admin: 08/23/18 09:08 Dose: 15 gm Chlordiazepoxide (Librium) 25 mg PO DAILY [facility] Last Admin: 08/22/18 09:40 Dose: Not Given Clopidogrel Bisulfate (Plavix) 75 mg PO DAILY [facility] Last Admin: 08/23/18 09:07 Dose: 75 mg Desoximetasone (Topicort 0.25%) 1 ea TOP BID [facility] Last Admin: 08/23/18 09:09 Dose: 1 applic Dextrose (Dextrose 50% Inj) 0 ml IV STAT PRN; Protocol PRN Reason: Hypoglycemia Protocol Dextrose (Glutose 15) 0 gm PO ONCE PRN; Protocol PRN Reason: Hypoglycemia Protocol Docusate Sodium (Colace) 200 mg PO DAILY [facility] Last Admin: 08/23/18 09:07 Dose: 200 mg Enoxaparin Sodium (Lovenox) 40 mg SC BID [facility] Last Admin: 08/22/18 18:11 Dose: 40 mg Fluticasone Propionate (Flonase) 1 spr RIYA BID [facility] Last Admin: 08/22/18 19:34 Dose: 1 spr Furosemide (Lasix) 40 mg PO DAILY [facility] Last Admin: 08/23/18 09:08 Dose: 40 mg Glucagon (Glucagen Diagnostic Kit) 0 mg IM STAT PRN; Protocol PRN Reason: Hypoglycemia Protocol Dextrose (Dextrose 5% In Water 1000 Ml) 1,000 mls @ 0 mls/hr IV .Q0M PRN; Protocol PRN Reason: Hypoglycemia Protocol Insulin Aspart (Novolog) 30 unit SC TIDAC [facility] Last Admin: 08/23/18 08:23 Dose: 30 units Insulin Detemir (Levemir) 40 unit SC HS [facility] Last Admin: 08/22/18 22:13 Dose: 40 units Insulin Human Regular (Novolin R) 0 unit SC ACHS [facility]; Protocol Last Admin: 08/23/18 08:23 Dose: 3 units Metoprolol Tartrate (Lopressor) 25 mg PO BID [facility] Last Admin: 08/23/18 09:08 Dose: 25 mg Montelukast Sodium (Singulair) 10 mg PO DAILY [facility] Last Admin: 08/23/18 09:19 Dose: 10 mg Pantoprazole Sodium (Protonix Ec Tab) 40 mg PO DAILY [facility] Last Admin: 08/23/18 09:07 Dose: 40 mg Rosuvastatin Calcium (Crestor) 40 mg PO HS [facility] Last Admin: 08/22/18 22:12 Dose: 40 mg Tamsulosin HCl (Flomax) 0.4 mg PO DAILY [facility] Last Admin: 08/23/18 09:08 Dose: 0.4 mg Tobramycin Sulfate (Tobrex 0.3% Oph Soln) 1 drop OS Q4 [facility] Last Admin: 08/23/18 08:09 Dose: Not Given Trimethoprim/Sulfamethoxazole (Bactrim Ds Tab) 1 tab PO Q12H [facility]; Protocol Last Admin: 08/23/18 06:26 Dose: 1 tab - Labs Labs: 08/21/18 03:41 08/22/18 08:09 Assessment and Plan - Assessment and Plan (Free Text) Assessment: FOLLOW UP WITH DR HAN IN 1-2 WEEKS IN HIS OFFICE -----CALL FOR APPOINTMENT ADDRESS YOUR IV MALISSA AT YOUR VISIT CONTINUE HOME MEDICATION NEW PRESCRIPTION GIVEN FLONASE ACTIVITY TOLERATED CALL DR HAN OR GO TO THE EMERGENCY ROOM IF SYMPTOM RETURN OR WORSENING
--- NOTE | 2018-08-23 14:10 | CP.PCM.DIS ---
Provider - Provider Date of Admission: 08/21/18 06:16 Attending physician: Miroslava Reynolds MD Consults: 08/21/18 06:16 Cardiology Consult Routine Comment: Consulting Provider: Qing Mckeon Consulting Physician: Qing Mckeon Reason for Consult: chest pain Time Spent in preparation of Discharge (in minutes): 35 Diagnosis - Discharge Diagnosis (1) Chest pain Status: Acute (2) History of heart artery stent Status: Chronic (3) History of hypertension Status: Chronic (4) History of psoriasis Status: Chronic (5) CAD (coronary artery disease) Status: Chronic Priority: Medium Hospital Course - Lab Results Lab Results: Most Recent Lab Values WBC 8.7 K/uL (4.8-10.8) 08/21/18 03:41 RBC 4.93 Mil/uL (4.40-5.90) 08/21/18 03:41 Hgb 13.3 g/dL (12.0-18.0) 08/21/18 03:41 Hct 41.0 % (35.0-51.0) 08/21/18 03:41 MCV 83.1 fL (80.0-94.0) D 08/21/18 03:41 MCH 26.9 pg (27.0-31.0) L 08/21/18 03:41 MCHC 32.4 g/dL (33.0-37.0) L 08/21/18 03:41 RDW 16.1 % (11.5-14.5) H 08/21/18 03:41 Plt Count 255 K/uL (130-400) 08/21/18 03:41 MPV 11.5 fL (7.2-11.7) 08/21/18 03:41 Neut % (Auto) 70.1 % (50.0-75.0) 08/21/18 03:41 Lymph % (Auto) 21.9 % (20.0-40.0) 08/21/18 03:41 [place] % (Auto) 6.7 % (0.0-10.0) 08/21/18 03:41 Eos % (Auto) 0.5 % (0.0-4.0) 08/21/18 03:41 Baso % (Auto) 0.8 % (0.0-2.0) 08/21/18 03:41 Neut # (Auto) 6.1 K/uL (1.8-7.0) 08/21/18 03:41 Lymph # (Auto) 1.9 K/uL (1.0-4.3) 08/21/18 03:41 [place] # (Auto) 0.6 K/uL (0.0-0.8) 08/21/18 03:41 Eos # (Auto) 0.0 K/uL (0.0-0.7) 08/21/18 03:41 Baso # (Auto) 0.1 K/uL (0.0-0.2) 08/21/18 03:41 Sodium 133 mmol/L (132-148) 08/22/18 08:09 Potassium 3.8 mmol/L (3.6-5.2) 08/22/18 08:09 Chloride 94 mmol/L (98-107) L 08/22/18 08:09 Carbon Dioxide 29 mmol/L (22-30) 08/22/18 08:09 Anion Gap 13 (10-20) 08/22/18 08:09 BUN 28 mg/dL (9-20) H 08/22/18 08:09 Creatinine 0.9 mg/dL (0.8-1.5) 08/22/18 08:09 Est GFR ( Amer) > 60 08/22/18 08:09 Est GFR (Non-Af Amer) > 60 08/22/18 08:09 POC Glucose (mg/dL) 250 mg/dL (65-110) H 08/23/18 10:51 Random Glucose 292 mg/dL (75-110) H 08/22/18 08:09 Calcium 8.8 mg/dl (8.6-10.4) 08/22/18 08:09 Total Bilirubin 0.5 mg/dL (0.2-1.3) 08/21/18 03:41 AST 67 U/L (17-59) H D 08/21/18 03:41 ALT 63 U/L (21-72) 08/21/18 03:41 Alkaline Phosphatase 127 U/L (38-126) H D 08/21/18 03:41 Total Creatine Kinase 50 U/L (55-170) L 08/21/18 19:23 CK-MB (Mass) 1.64 ng/mL (0.0-3.38) 08/21/18 19:23 Troponin I 0.0470 ng/mL (0.00-0.120) 08/21/18 19:23 NT-Pro-B Natriuret Pep 312 pg/mL (0-900) 08/21/18 03:41 Total Protein 7.0 g/dL (6.3-8.3) 08/21/18 03:41 Albumin 3.8 g/dL (3.5-5.0) 08/21/18 03:41 Globulin 3.2 gm/dL (2.2-3.9) 08/21/18 03:41 Albumin/Globulin Ratio 1.2 (1.0-2.1) 08/21/18 03:41 Free T4 1.40 ng/dL (0.78-2.19) 08/22/18 08:09 TSH 3rd Generation 0.19 mIU/L (0.46-4.68) L 08/22/18 08:09 - Hospital Course Hospital Course: 63 y/o male pt presents to the ER c/o chest pain. Pt reports he woke up with it today. Chest pain is located substernal and is localized. Pt denies SOB, abdominal pain, nausea, vomiting, fever and chills. Pt has an excessive history. Pt has an [place] x1 moth ago and currently has no pain. admission EKG shows normal sinus rhythm with no any ST-T changes. Patient had an echocardiogram done in May 2018 which was reported as normal left ventricle ejection fraction. Patient also had a cardiac catheterization report not available apparently had angioplasty stent. Serial cardiac enzymes were negative. EKG showed normal sinus rhythm with no ST-T changes. Echo was done 2 months ago which showed normal left ejection fraction no wall motion is noted. Discussed with with hardwood sawyer, outpatient IV Lola. Patient had other medical issues which are of not of immediate concern. Patient was discharged on his usual medications and to return back if there is recurrent of chest pain. Discharge Exam - Head Exam Head Exam: ATRAUMATIC, NORMAL INSPECTION, NORMOCEPHALIC Discharge Plan - Discharge Medications Prescriptions: Fluticasone Propionate [Flonase] 1 spr RIYA BID #1 bottle - Follow Up Plan Condition: STABLE Disposition: HOME/ ROUTINE Instructions: Heart Failure, Adult (DC), Chest Pain (DC), Fluticasone (Nasal) Additional Instructions: FOLLOW UP WITH DR REYNOLDS IN 1-2 WEEKS IN HIS OFFICE -----CALL FOR APPOINTMENT ADDRESS YOUR IV LEXICAN AT YOUR VISIT CONTINUE HOME MEDICATION NEW PRESCRIPTION GIVEN FLONASE ACTIVITY TOLERATED CALL DR REYNOLDS OR GO TO THE EMERGENCY ROOM IF SYMPTOM RETURN OR WORSENING Referrals: Miroslava Reynolds MD [Staff Provider] -
--- NOTE | 2018-08-23 20:56 | CARD ---
APPROVED REPORT Date of service: 08/21/2018 EKG Measurement Heart [id number] <Conclusion> Normal sinus rhythm Possible Left atrial enlargement Left ventricular hypertrophy Abnormal ECG
--- NOTE | 2018-08-23 20:58 | CARD ---
APPROVED REPORT Date of service: 08/21/2018 EKG Measurement Heart [id number] <Conclusion> Normal sinus rhythm Voltage criteria for left ventricular hypertrophy Abnormal ECG
[2018-08-23] MEDS: Insulin Detemir 100 units/ml Vial (Levemir) SC SCH (21:45)
[2018-08-24] MEDS: Tobramycin 0.3% OPHT SOLN OS SCH ×6 (00:15→21:18)
[2018-08-24] MEDS: Tmp-Smz 800 mg-160 mg DS Tab PO SCH ×2 (05:52→17:43)
[2018-08-24] MEDS: (Novolin R) Insulin Human Regular 100 units/ml vial SC SCH ×4 (07:58→21:36)
[2018-08-24] MEDS: (Novolog) Insulin Aspart, Recombinant 100 u/ml 10 ml vial SC SCH ×3 (08:15→17:44)
[2018-08-24] MEDS: Enoxaparin 40 mg Syringe SC SCH ×2 (09:33→17:42)
[2018-08-24] MEDS: Pantoprazole 40 mg EC Tab PO SCH (09:33)
[2018-08-24] MEDS: Desoximetasone 0.25% Cream(15 gm) TOP SCH ×2 (09:37→18:42)
[2018-08-24] MEDS: Fluticasone Nasal 50 mcg/Spray NAS SCH ×2 (09:57→18:42)
[2018-08-24] MEDS: Clotrimazole/Betamethasone Cream(15 gm) EXT SCH ×2 (09:59→18:42)
[2018-08-24 15:49] VITALS: RESP 20
[2018-08-24] MEDS: Insulin Detemir 100 units/ml Vial (Levemir) SC SCH (21:20)
[2018-08-25] MEDS: Tobramycin 0.3% OPHT SOLN OS SCH ×4 (00:01→12:25)
[2018-08-25 00:24] VITALS: PULSE 80
[2018-08-25] MEDS: (Novolin R) Insulin Human Regular 100 units/ml vial SC SCH ×3 (02:43→12:30)
[2018-08-25] MEDS: Tmp-Smz 800 mg-160 mg DS Tab PO SCH (06:45)
[2018-08-25 09:12] VITALS: BP 140/70
[2018-08-25 09:13] VITALS: TEMP 97.9
[2018-08-25] MEDS: (Novolog) Insulin Aspart, Recombinant 100 u/ml 10 ml vial SC SCH ×2 (09:13→13:07)
[2018-08-25] MEDS: Enoxaparin 40 mg Syringe SC SCH (09:15)
[2018-08-25] MEDS: Fluticasone Nasal 50 mcg/Spray NAS SCH (09:16)
[2018-08-25] MEDS: Pantoprazole 40 mg EC Tab PO SCH (09:19)
[2018-08-25] MEDS: Desoximetasone 0.25% Cream(15 gm) TOP SCH (10:21)
[2018-08-25] MEDS: Clotrimazole/Betamethasone Cream(15 gm) EXT SCH (10:22)
[2018-08-25 12:22] VITALS: O2SAT 96
--- NOTE | 2018-08-25 14:08 | CP.PCM.DIS ---
Provider - Provider Date of Admission: 08/21/18 06:16 Attending physician: Miroslava Reynolds MD Consults: 08/21/18 06:16 Cardiology Consult Routine Comment: Consulting Provider: Qing Mckeon Consulting Physician: Qing Mckeon Reason for Consult: chest pain Time Spent in preparation of Discharge (in minutes): 35 Diagnosis - Discharge Diagnosis (1) Chest pain Status: Acute (2) History of heart artery stent Status: Chronic (3) History of hypertension Status: Chronic (4) History of psoriasis Status: Chronic (5) CAD (coronary artery disease) Status: Chronic Priority: Medium Hospital Course - Lab Results Lab Results: Most Recent Lab Values WBC 8.7 K/uL (4.8-10.8) 08/21/18 03:41 RBC 4.93 Mil/uL (4.40-5.90) 08/21/18 03:41 Hgb 13.3 g/dL (12.0-18.0) 08/21/18 03:41 Hct 41.0 % (35.0-51.0) 08/21/18 03:41 MCV 83.1 fL (80.0-94.0) D 08/21/18 03:41 MCH 26.9 pg (27.0-31.0) L 08/21/18 03:41 MCHC 32.4 g/dL (33.0-37.0) L 08/21/18 03:41 RDW 16.1 % (11.5-14.5) H 08/21/18 03:41 Plt Count 255 K/uL (130-400) 08/21/18 03:41 MPV 11.5 fL (7.2-11.7) 08/21/18 03:41 Neut % (Auto) 70.1 % (50.0-75.0) 08/21/18 03:41 Lymph % (Auto) 21.9 % (20.0-40.0) 08/21/18 03:41 [place] % (Auto) 6.7 % (0.0-10.0) 08/21/18 03:41 Eos % (Auto) 0.5 % (0.0-4.0) 08/21/18 03:41 Baso % (Auto) 0.8 % (0.0-2.0) 08/21/18 03:41 Neut # (Auto) 6.1 K/uL (1.8-7.0) 08/21/18 03:41 Lymph # (Auto) 1.9 K/uL (1.0-4.3) 08/21/18 03:41 [place] # (Auto) 0.6 K/uL (0.0-0.8) 08/21/18 03:41 Eos # (Auto) 0.0 K/uL (0.0-0.7) 08/21/18 03:41 Baso # (Auto) 0.1 K/uL (0.0-0.2) 08/21/18 03:41 Sodium 133 mmol/L (132-148) 08/22/18 08:09 Potassium 3.8 mmol/L (3.6-5.2) 08/22/18 08:09 Chloride 94 mmol/L (98-107) L 08/22/18 08:09 Carbon Dioxide 29 mmol/L (22-30) 08/22/18 08:09 Anion Gap 13 (10-20) 08/22/18 08:09 BUN 28 mg/dL (9-20) H 08/22/18 08:09 Creatinine 0.9 mg/dL (0.8-1.5) 08/22/18 08:09 Est GFR ( Amer) > 60 08/22/18 08:09 Est GFR (Non-Af Amer) > 60 08/22/18 08:09 POC Glucose (mg/dL) 412 mg/dL (65-110) H* 08/25/18 02:29 Random Glucose 292 mg/dL (75-110) H 08/22/18 08:09 Calcium 8.8 mg/dl (8.6-10.4) 08/22/18 08:09 Total Bilirubin 0.5 mg/dL (0.2-1.3) 08/21/18 03:41 AST 67 U/L (17-59) H D 08/21/18 03:41 ALT 63 U/L (21-72) 08/21/18 03:41 Alkaline Phosphatase 127 U/L (38-126) H D 08/21/18 03:41 Total Creatine Kinase 50 U/L (55-170) L 08/21/18 19:23 CK-MB (Mass) 1.64 ng/mL (0.0-3.38) 08/21/18 19:23 Troponin I 0.0470 ng/mL (0.00-0.120) 08/21/18 19:23 NT-Pro-B Natriuret Pep 312 pg/mL (0-900) 08/21/18 03:41 Total Protein 7.0 g/dL (6.3-8.3) 08/21/18 03:41 Albumin 3.8 g/dL (3.5-5.0) 08/21/18 03:41 Globulin 3.2 gm/dL (2.2-3.9) 08/21/18 03:41 Albumin/Globulin Ratio 1.2 (1.0-2.1) 08/21/18 03:41 Free T4 1.40 ng/dL (0.78-2.19) 08/22/18 08:09 TSH 3rd Generation 0.19 mIU/L (0.46-4.68) L 08/22/18 08:09 - Hospital Course Hospital Course: 63 y/o male pt presents to the ER c/o chest pain. Pt reports he woke up with it today. Chest pain is located substernal and is localized. Pt denies SOB, abdominal pain, nausea, vomiting, fever and chills. Pt has an excessive history. Pt has an [place] x1 moth ago and currently has no pain. admission EKG shows normal sinus rhythm with no any ST-T changes. Patient had an echocardiogram done in May 2018 which was reported as normal left ventricle ejection fraction. Patient also had a cardiac catheterization report not available apparently had angioplasty stent. Serial cardiac enzymes were negative. EKG showed normal sinus rhythm with no ST-T changes. Echo was done 2 months ago which showed normal left ejection fraction no wall motion is noted. Discussed with with fixed route bus operator, outpatient IV Lola. Patient had other medical issues which are of not of immediate concern. Patient was discharged on his usual medications and to return back if there is recurrent of chest pain. Discharge Exam - Head Exam Head Exam: ATRAUMATIC, NORMAL INSPECTION, NORMOCEPHALIC Discharge Plan - Discharge Medications Prescriptions: Rosuvastatin Calcium [Crestor] 40 mg PO HS 30 Days #30 tablet Fluticasone Propionate [Flonase] 1 spr RIYA BID #1 bottle Furosemide [Lasix] 40 mg PO DAILY #30 tab Metoprolol Tartrate [Lopressor] 25 mg PO BID #60 tab Clotrimazole/Betamethasone [Lotrisone] 15 gm EXT BID #30 tube Clopidogrel [Plavix] 75 mg PO DAILY 30 Days #30 tab Pantoprazole [Protonix EC Tab] 40 mg PO DAILY #30 ect Montelukast [Singulair] 10 mg PO DAILY 30 Days #30 tab Allopurinol [Zyloprim] 100 mg PO DAILY #30 tab - Follow Up Plan Condition: STABLE Disposition: HOME/ ROUTINE Instructions: Heart Failure, Adult (DC), Chest Pain (DC), Fluticasone (Nasal) Additional Instructions: FOLLOW UP WITH DR REYNOLDS IN 1-2 WEEKS IN HIS OFFICE -----CALL FOR APPOINTMENT ADDRESS YOUR IV LEXICAN AT YOUR VISIT CONTINUE HOME MEDICATION NEW PRESCRIPTION GIVEN FLONASE ACTIVITY TOLERATED CALL DR REYNOLDS OR GO TO THE EMERGENCY ROOM IF SYMPTOM RETURN OR WORSENING Referrals: Miroslava Reynolds MD [Staff Provider] -
== END 2018-08-25 15:49 | disposition home or self-care (01) ==
LOC: C.ER 03:00 → C.5S 06:16
PROVIDERS: ADMIT Internal Medicine Cardiovascular Disease; ATTEND Internal Medicine Cardiovascular Disease
DX: R07.9 Chest pain, unspecified (principal); R07.89 Other chest pain; I50.9 Heart failure, unspecified; I25.10 Atherosclerotic heart disease of native coronary artery without angina pectoris; I11.0 Hypertensive heart disease with heart failure; J44.9 Chronic obstructive pulmonary disease, unspecified; E78.00 Pure hypercholesterolemia, unspecified; Z87.891 Personal history of nicotine dependence; Z95.5 Presence of coronary angioplasty implant and graft; I25.2 Old myocardial infarction
CPT/HCPCS: 36415; 71045; 80048; 80053; 82948; 83880; 84439; 84443; 84484; 85025; 93005; 97116; 97162; 97166; 97530; 99285; G0378; G8978; G8979; G8987; G8988; J1650; J1940